=== PATIENT | female | born 1955 | race Caucasian/White ===

== ENCOUNTER 2020-03-13 03:29 | Emergency (ER) | payer OTHER ==
--- NOTE | 2020-03-13 04:11 | PDOC ---
History of Present Illness - General Stated Complaint: CHEST TIGHTNESS Time Seen by Provider: 03/13/20 03:44 History Source: Patient Exam Limitations: No Limitations - History of Present Illness Initial Comments: 03/13/20 06:48 64 yo F with a hx of afib (on eliquis, compliant), HTN, and seizures presents to the emergency department with chest tightness that began 1 hour prior to arrival. The patient states she was at rest when she had the gradual onset of substernal pressure that radiated to the back. The pain was constant, 5/10, with SOB. Denies nausea, vomiting, cough, fevers, chills, back pain, dysuria, hematuria, diarrhea, hematuria. The patient had substernal pain 2 weeks prior to this episode. Never had stress test done. Past History - Medical History Allergies/Adverse Reactions: Allergies Allergy/AdvReac Type Severity Reaction Status Date / Time No Known Allergies Allergy Verified 03/13/20 06:44 Review of Systems - Review of Systems Able to Perform ROS?: Yes Is the patient limited Citizen Of [place] proficient: No Constitutional: No: Chills, Diaphoresis, Fever, Weakness HEENTM: No: Eye Pain, Ear Pain, Nose Pain, Throat Pain Respiratory: Yes: Shortness of Breath. No: Cough Cardiac (ROS): Yes: Chest Pain. No: Palpitations ABD/GI: No: Constipated, Diarrhea, Nausea, Poor Fluid Intake, Rectal Bleeding, Vomiting, Tarry Stools : No: Burning, Dysuria, Hematuria Musculoskeletal: No: Back Pain Integumentary: No: Rash Neurological: No: Headache Psychiatric: No: Change in Appetite Endocrine: No: Unexplained Weight Loss Hematologic/Lymphatic: No: Anemia *Physical Exam - Physical Exam General Appearance: Yes: Nourished, Appropriately Dressed. No: Apparent Distress, Intoxicated HEENT: positive: EOMI, PAT, Normal Voice, Symmetrical, Pharynx Normal, Hearing Grossly Normal. negative: Pale Conjunctivae, Scleral Icterus (R), Scleral Icterus (L), Muffled/Hoarse voice, Pharyngeal Erythema, Tonsillar Exudate, Tonsillar Erythema, Nasal Congestion, Rhinorrhea, Sinus Tenderness, Excessive drooling Neck: positive: Trachea midline, Supple. negative: Tender, Lymphadenopathy (R), Lymphadenopathy (L), Tender lateral, Tender midline Respiratory/Chest: positive: Lungs Clear, Normal Breath Sounds. negative: Chest Tender, Respiratory Distress, Accessory Muscle Use Cardiovascular: positive: Regular Rhythm, Regular Rate, S1, S2. negative: Systolic Murmur Gastrointestinal/Abdominal: positive: Normal Bowel Sounds, Flat, Soft. ne gative: Tender, Distended, Guarding, Rebound Lymphatic: negative: Adenopathy Musculoskeletal: positive: Normal Inspection. negative: CVA Tenderness, Vertebral Tenderness Extremity: positive: Normal Capillary Refill, Normal Inspection, Normal Range of Motion. negative: Tender Integumentary: positive: Normal Color, Dry, Warm Neurologic: positive: Alert, Normal Mood/Affect Heart Score/ECG Review - History History: Slightly suspicious - Electrocardiogram EKG: Non specific repolarization disturbance - Age Age: 45-65 - Risk Factors Risk Factors Heart Score: Yes Hx Hypertension Based on the list above the patient has:: 1-2 risk factors - Troponin Troponin: </= normal limit - Score Heart Score - Total: 3 ED Treatment Course - LABORATORY CBC & Chemistry Diagram: 03/13/20 04:00 03/13/20 04:00 Medical Decision Making - Medical Decision Making Initial vitals: Initial Vital Signs Temp Pulse Resp BP Pulse Ox 98.2 F 70 18 162/107 H 100 03/13/20 04:35 03/13/20 04:35 03/13/20 04:35 03/13/20 04:35 03/13/20 04:35 Work up: patient presents to the emergency department with chest pain acs rule out first troponin is negative NSR without ST elevations or depression Patient signed out to day team for pending cxr and second troponin Discharge - Discharge Information Problems reviewed: Yes Clinical Impression/Diagnosis: SOB (shortness of breath), Atypical chest pain Chest pain Qualifiers: Chest pain type: unspecified Qualified Code(s): R07.9 - Chest pain, unspecified - Follow up/Referral Referrals: Nawaf Reagan MD [Primary Care Provider] - Rafiq Jimenez MD [Staff Physician] - Joby Degroot MD [Staff Physician] - Kennedy Watkins MD [Staff Physician] - - Patient Discharge Instructions Patient Printed Discharge Instructions: DI for Chest Pain Additional Instructions: You were seen in the Emergency Department for evaluation of chest pain. Your labs and imaging were unremarkable. Review the handout provided at discharge. Referrals were provided for Cardiologists, follow up with them within a week. Return to the Emergency Department if you develop fevers, chest pain, trouble breathing, worsening symptoms, or any new/concerning symptoms. - Post Discharge Activity
--- NOTE | 2020-03-13 04:13 | PDOC ---
Attending Attestation - Resident Resident Name: David Lux - ED Attending Attestation I have performed the following: I have examined & evaluated the patient, The case was reviewed & discussed with the resident, I agree w/resident's findings & plan, Exceptions are as noted - HPI HPI: 03/13/20 04:11 64 F with h/o seizure disorder, afib on eliquis, presenting with chest tightness. Pt states it started 1 hour ago, waking her from sleep. Endorses chest tightness 5/10 in intensity. Endorses SOB as well. Denies N/V. No diaphoresis. No cough. Denies leg swelling. No recent travel/immobilization. Denies any complaints at this time. CP/SOB resolved. - Physicial Exam PE: 03/13/20 04:12 "GENERAL: Awake, alert, and fully oriented, in no acute distress. HEAD: No signs of trauma EYES: PERRLA, EOMI, sclera anicteric, conjunctiva clear ENT: Auricles normal inspection, hearing grossly normal, nares patent, oropharynx clear without exudates. Moist mucosa NECK: Nontender, no stepoffs, Normal ROM, supple, no lymphadenopathy, JVD, or masses LUNGS: Breath sounds equal, clear to auscultation bilaterally. No wheezes, and no crackles HEART: Regular rate and rhythm, normal S1 and S2, no murmurs, rubs or gallops ABDOMEN: Soft, nontender, normoactive bowel sounds. No guarding, no rebound. No masses EXTREMITIES: Normal range of motion, no edema. No clubbing or cyanosis. No cords, erythema, or tenderness NEUROLOGICAL: Cranial nerves II through XII intact. 5/5 strength and sensation in all extremities, Normal speech, normal gait, normal cerebellar function SKIN: Warm, Dry, normal turgor, no rashes or lesions noted. - Medical Decision Making 03/13/20 06:02 64 F with chest pain. EKG nonischemic. - Labs, trop - CXR Pt signed out at 7am, pending repeat trop and re-evaluation. Discharge - Discharge Information Problems reviewed: Yes Clinical Impression/Diagnosis: SOB (shortness of breath), Atypical chest pain Chest pain Qualifiers: Chest pain type: unspecified Qualified Code(s): R07.9 - Chest pain, unspecified Condition: Stable Disposition: HOME - Follow up/Referral Referrals: Nawaf Reagan MD [Primary Care Provider] - Rafiq Jimenez MD [Staff Physician] - Joby Degroot MD [Staff Physician] - Kennedy Watkins MD [Staff Physician] - - Patient Discharge Instructions Patient Printed Discharge Instructions: DI for Chest Pain Additional Instructions: You were seen in the Emergency Department for evaluation of chest pain. Your labs and imaging were unremarkable. Review the handout provided at discharge. Referrals were provided for Cardiologists, follow up with them within a week. Return to the Emergency Department if you develop fevers, chest pain, trouble breathing, worsening symptoms, or any new/concerning symptoms. - Post Discharge Activity
[2020-03-13] MEDS ORDERED: FAMOTIDINE 20 MG/50 ML IVPB 20 MG/50 ML MG IVPB ONE (04:16)
[2020-03-13] MEDS ORDERED: ACETAMINOPHEN 1000 MG/100 ML VIAL (NON FORMULARY) IVPB ONE (04:16)
[2020-03-13] MEDS ORDERED: MAG HYDROX/AL HYDROX/SIMETH 30 ML UNIT-DOSE CUP PO ONE (04:16)
[2020-03-13 04:40] VITALS: BMI 22.6
[2020-03-13] MEDS ORDERED: CEFTRIAXONE 1 GM/50 ML BAG ONE (05:30)
[2020-03-13 05:31] LABS: BASO % 0.6 % (0-2.0); EOS % 0.9 % (0-4.5); HEMATOCRIT 38.5 % (32.4-45.2); HEMOGLOBIN 13.1 GM/dL (10.7-15.3); LYMPH % 40.3 % (8-40); MCH 36.6 pg (25.7-33.7); MCHC 33.9 g/dl (32.0-36.0); MEAN CELL VOLUME 107.9 fl (80-96); MEAN PLT VOLUME 8.6 fl (7.5-11.1); MONO % 14.2 % (3.8-10.2); PLATELET COUNT 183 K/MM3 (134-434); RBC 3.57 M/mm3 (3.60-5.2); RDW 15.2 % (11.6-15.6); WHITE BLOOD COUNT 3.7 K/mm3 (4.0-10.0)
[2020-03-13 07:06] LABS: CHLORIDE 109 mmol/L (98-107); CREATININE 0.7 mg/dL (0.55-1.3); GLUCOSE,RANDOM 87 mg/dL (74-106); SODIUM 146 mmol/L (136-145)
[2020-03-13 07:07] LABS: BILIRUBIN,TOTAL 0.2 mg/dL (0.2-1); CALCIUM 8.5 mg/dL (8.5-10.1); CO2 28 mmol/L (21-32); SGPT/ALT 56 U/L (13-61)
[2020-03-13 07:08] LABS: ALK PHOS 75 U/L (45-117)
[2020-03-13 07:38] LABS: ALBUMIN 3.6 g/dl (3.4-5.0); ANION GAP 9 MMOL/L (8-16); BLOOD UREA NITROGEN 11.5 mg/dL (7-18); POTASSIUM 3.5 mmol/L (3.5-5.1); TOT PROT 8.2 g/dl (6.4-8.2)
--- NOTE | 2020-03-13 08:10 | PDOC ---
*Physical Exam - Vital Signs Last Vital Signs Temp Pulse Resp BP Pulse Ox 98.2 F 70 18 162/107 H 100 03/13/20 04:35 03/13/20 04:35 03/13/20 04:35 03/13/20 04:35 03/13/20 04:35 ED Treatment Course - LABORATORY CBC & Chemistry Diagram: 03/13/20 04:00 03/13/20 04:00 - ADDITIONAL ORDERS Additional order review: Laboratory Results 03/13/20 03/13/20 04:50 04:00 PT with INR Cancelled INR Cancelled Sodium 146 H Potassium 3.5 Chloride 109 H Carbon Dioxide 28 Anion Gap 12 BUN 12.0 Creatinine 0.7 Est GFR (CKD-EPI)AfAm 106.87 Est GFR (CKD-EPI)NonAf 92.21 Random Glucose 87 Calcium 8.5 Total Bilirubin 0.2 AST 112 H ALT 56 Alkaline Phosphatase 75 Creatine Kinase 277 H Creatine Kinase Index 1.1 CK-MB (CK-2) 3.1 Troponin I < 0.02 Total Protein 8.1 Albumin 3.7 03/13/20 04:00 RBC 3.57 L MCV 107.9 H MCHC 33.9 RDW 15.2 MPV 8.6 Neutrophils % 44.0 Lymphocytes % 40.3 H Monocytes % 14.2 H Eosinophils % 0.9 Basophils % 0.6 - Medications Given in the ED: ED Medications Discontinued Medications Generic Name Dose Route Start Last Admin Trade Name Freq PRN Reason Stop Dose Admin Acetaminophen 1,000 mg 03/13/20 04:16 03/13/20 05:31 Ofirmev Injection - IVPB 03/13/20 04:17 1,000 mg ONCE ONE Administration Al Hydroxide/Mg Hydroxide 30 ml 03/13/20 04:16 03/13/20 05:31 Mylanta Oral Suspension - PO 03/13/20 04:17 30 ml ONCE ONE Administration Famotidine/Sodium Chloride 20 mg in 50 mls @ 100 mls/hr 03/13/20 04:16 03/13/20 05:31 Pepcid 20 Mg Premixed Ivpb - IVPB 03/13/20 04:45 100 mls/hr ONCE ONE Administration Medical Decision Making - Medical Decision Making Pt received as sign out Pending repeat Trop I CXR pending Pt feels her normal self at this time 08/16/20 08:04 158/86 03/13/20 09:12 Repeat Trop I neg Plan for D/C w/ PCP/Cards f/u Discharge instructions and return precautions given Patient in agreement and verbalized understanding Dispo: Home Discharge - Discharge Information Problems reviewed: Yes Clinical Impression/Diagnosis: Chest pain Qualifiers: Chest pain type: unspecified Qualified Code(s): R07.9 - Chest pain, unspecified Condition: Stable Disposition: HOME - Admission No - Follow up/Referral Referrals: Nawaf Reagan MD [Primary Care Provider] - Rafiq Jimenez MD [Staff Physician] - Joby Degroot MD [Staff Physician] - Kennedy Watkins MD [Staff Physician] - - Patient Discharge Instructions Patient Printed Discharge Instructions: DI for Chest Pain Additional Instructions: You were seen in the Emergency Department for evaluation of chest pain. Your labs and imaging were unremarkable. Review the handout provided at discharge. Referrals were provided for Cardiologists, follow up with them within a week. Return to the Emergency Department if you develop fevers, chest pain, trouble breathing, worsening symptoms, or any new/concerning symptoms. - Post Discharge Activity
[2020-03-13 08:42] LABS: SGOT/AST 112 U/L (15-37)
[2020-03-13 08:48] LABS: ANISOCYTOSIS 2+; MACROCYTOSIS 2+; PLATELET ESTIMATE NORMAL
[2020-03-13 09:21] VITALS: BP 159/89; PULSE 66; TEMP 97.7
--- NOTE | 2020-03-13 18:00 | EKG ---
Test Reason : Blood Pressure : / mmHG Vent. Rate : 062 BPM Atrial Rate : 062 BPM P-R Int : 200 ms QRS Dur : 104 ms QT Int : 426 ms P-R-T Axes : 061 020 069 degrees QTc Int : 432 ms NORMAL SINUS RHYTHM NORMAL ECG NO PREVIOUS ECGS AVAILABLE Confirmed by MD DEE, MICHEAL ([id number]) on 03/13/2020 5:59:58 PM Referred By: Confirmed By:MICHEAL PRICE MD
== END 2020-03-13 09:27 | disposition home or self-care (01) ==
LOC: JER 03:29
PROC: 3E0333Z Introduction of Anti-inflammatory into Peripheral Vein, Percutaneous Approach (ICD-10-PCS; principal; 2020-03-13)
PROC: 3E033GC Introduction of Other Therapeutic Substance into Peripheral Vein, Percutaneous Approach (ICD-10-PCS; 2020-03-13)
DX: R06.02 Shortness of breath (principal); R07.89 Other chest pain
CPT/HCPCS: 36415; 71045-TC-FY; 80053; 82550; 82553; 84484; 85025; 93005; 93010; 99285-25; J0131

== ENCOUNTER 2020-06-25 00:59 | Inpatient (IN) | payer OTHER ==
[2020-06-25 01:12] VITALS: TEMP 98.1; BMI 23.3
[2020-06-25 01:50] LABS: BASO % 0.6 % (0-2.0); HEMATOCRIT 34.1 % (32.4-45.2); HEMOGLOBIN 11.4 GM/dL (10.7-15.3); LYMPH % 51.2 % (8-40); MCH 37.1 pg (25.7-33.7); MCHC 33.6 g/dl (32.0-36.0); MEAN CELL VOLUME 110.6 fl (80-96); MEAN PLT VOLUME 8.4 fl (7.5-11.1); MONO % 10.8 % (3.8-10.2); NEUT % 35.4 % (42.8-82.8); PLATELET COUNT 265 K/MM3 (134-434); RBC 3.08 M/mm3 (3.60-5.2); RDW 14.6 % (11.6-15.6); WHITE BLOOD COUNT 4.6 K/mm3 (4.0-10.0)
[2020-06-25 01:53] LABS: MACROCYTOSIS 2+
[2020-06-25 02:00] LABS: INR 1.2 (0.83-1.09); PROTHROMBIN TIME (PATIENT) 14.7 SEC (9.7-13.0)
[2020-06-25] MEDS ORDERED: POTASSIUM CHLORIDE TABS 20 MEQ TABLET.ER (FP) PO ONE ×2 (02:07→02:37)
[2020-06-25 02:10] LABS: CHLORIDE 110 mmol/L (98-107); POTASSIUM 4.1 mmol/L (3.5-5.1); SODIUM 145 mmol/L (136-145)
[2020-06-25 02:11] LABS: CALCIUM 8.8 mg/dL (8.5-10.1)
[2020-06-25 02:12] LABS: ALBUMIN 3.5 g/dl (3.4-5.0); ANION GAP 10 MMOL/L (8-16); BLOOD UREA NITROGEN 15.1 mg/dL (7-18); CO2 25 mmol/L (21-32); GLUCOSE,RANDOM 110 mg/dL (74-106)
[2020-06-25 02:15] LABS: CREATININE 0.9 mg/dL (0.55-1.3); SGOT/AST 77 U/L (15-37); SGPT/ALT 92 U/L (13-61); TRIGLYCERIDES 203 mg/dL (0-150)
[2020-06-25 02:16] LABS: BILIRUBIN,TOTAL 0.2 mg/dL (0.2-1); CHOLESTEROL 150 mg/dL (50-200); LDL CHOLESTEROL (ONLY SJRH) 64 mg/dL (5-100)
[2020-06-25] MEDS ORDERED: SODIUM CHLORIDE 0.9% 500 ML INFUS.BAG IV ONE (02:16)
[2020-06-25 02:17] LABS: TOT PROT 7.9 g/dl (6.4-8.2)
[2020-06-25 02:18] LABS: ALK PHOS 69 U/L (45-117); HDL CHOLESTEROL 76 mg/dL (40-60)
[2020-06-25] MEDS ORDERED: carBAMazepine 200 MG TABLET PO ONE (03:14)
[2020-06-25] MEDS ORDERED: carBAMazepine 200 MG TABLET ONE (04:07)
[2020-06-25 04:25] VITALS: BP 122/67
[2020-06-25] MEDS ORDERED: MAGNESIUM SULFATE IN WATER 2 GM/50 ML IVPB IVPB ONE (05:14)
[2020-06-25] MEDS: MAGNESIUM SULF 50% (8.12 MEQ/2 ML-1 GM VIAL) IVPB ONE ×2 (05:26→05:32)
[2020-06-25 05:27] LABS: EPI CELLS 12 /uL (0-25.1); HYALINE CASTS 1 /uL (0-3.1); URINE APPEARANCE CLEAR; URINE BACTERIA 4461 /uL (0-1359); URINE BILIRUBIN NEGATIVE (NEGATIVE); URINE COLOR YELLOW; URINE GLUCOSE (UA) NEGATIVE (NEGATIVE); URINE KETONE NEGATIVE (NEGATIVE); URINE LEUK ESTERASE 1+ (NEGATIVE); URINE NITRITE NEGATIVE (NEGATIVE); URINE PROTEIN NEGATIVE (NEGATIVE); URINE RBC 7 /uL (0-23.9); URINE UROBILINOGEN 0.2 mg/dL (0.2-1.0); URINE WBC 55 /uL (0-25.8)
[2020-06-25 05:36] LABS: PHENCYCLIDINE,URINE NEGATIVE ng/ml (CUTOFF=25); URINE BARBITURATES NEGATIVE ng/ml (CUTOFF=200); URINE BENZODIAZEPINES NEGATIVE ng/ml (CUTOFF=200)
[2020-06-25 05:40] LABS: COCAINE, UR NEGATIVE ng/ml (CUTOFF=300); METHADONE, UR NEGATIVE ng/ml (CUTOFF=300); OPIATES, URI NEGATIVE ng/ml (CUTOFF=300); URINE AMPHETAMINES NEGATIVE ng/ml (CUTOFF=500)
[2020-06-25] MEDS ORDERED: ASPIRIN 81 MG CHEWABLE TABLETS PO ONE (07:28)
[2020-06-25] MEDS ORDERED: ASPIRIN 325 MG ENTERIC COATED TABLET (FP) ONE (08:02)
[2020-06-25 08:10] VITALS: PULSE 70
== END 2020-06-25 13:20 | disposition left against medical advice (07) | DRG 756 ==
LOC: JER 00:59 → JERBED 06:32
PROVIDERS: ADMIT Hospitalist; ATTEND Hospitalist
DX: F41.9 Anxiety disorder, unspecified (principal); I10 Essential (primary) hypertension; I48.91 Unspecified atrial fibrillation; R19.7 Diarrhea, unspecified; R53.1 Weakness; G40.909 Epilepsy, unspecified, not intractable, without status epilepticus; F10.129 Alcohol abuse with intoxication, unspecified
CPT/HCPCS: 36415; 70450-TC; 71045-TC-FY; 80053; 80061; 80183; 80307; 81003; 82550; 82553; 82962; 83721; 84484; 85025; 85610; 85730; 86850; 86900; 86901; 93005; 93010; 99285-25; C9803; U0003

== ENCOUNTER 2020-06-29 00:04 | Inpatient (IN) | payer OTHER ==
[2020-06-29 00:33] VITALS: BMI 24.2
[2020-06-29 01:48] LABS: BASO % 0.6 % (0-2.0); EOS % 0.1 % (0-4.5); HEMATOCRIT 32.5 % (32.4-45.2); HEMOGLOBIN 11.2 GM/dL (10.7-15.3); LYMPH % 41.3 % (8-40); MCH 37.7 pg (25.7-33.7); MCHC 34.6 g/dl (32.0-36.0); MEAN CELL VOLUME 108.9 fl (80-96); MEAN PLT VOLUME 8.6 fl (7.5-11.1); MONO % 6.6 % (3.8-10.2); NEUT % 51.4 % (42.8-82.8); PLATELET COUNT 232 K/MM3 (134-434); RBC 2.99 M/mm3 (3.60-5.2); RDW 14.3 % (11.6-15.6); WHITE BLOOD COUNT 6.8 K/mm3 (4.0-10.0)
[2020-06-29 02:00] LABS: INR 1.24 (0.83-1.09); PROTHROMBIN TIME (PATIENT) 15.1 SEC (9.7-13.0)
[2020-06-29 02:02] LABS: CHLORIDE 110 mmol/L (98-107); POTASSIUM 3.9 mmol/L (3.5-5.1); SODIUM 146 mmol/L (136-145)
[2020-06-29 02:04] LABS: CALCIUM 8.1 mg/dL (8.5-10.1)
[2020-06-29 02:05] LABS: ALBUMIN 3.7 g/dl (3.4-5.0); ANION GAP 6 MMOL/L (8-16); CO2 30 mmol/L (21-32); GLUCOSE,RANDOM 93 mg/dL (74-106)
[2020-06-29 02:07] LABS: CREATININE 0.7 mg/dL (0.55-1.3)
[2020-06-29 02:08] LABS: SGOT/AST 87 U/L (15-37); SGPT/ALT 67 U/L (13-61)
[2020-06-29 02:09] LABS: BILIRUBIN,TOTAL 0.3 mg/dL (0.2-1)
[2020-06-29 02:10] LABS: ALK PHOS 76 U/L (45-117)
[2020-06-29 06:07] LABS: URINE APPEARANCE CLEAR; URINE BILIRUBIN NEGATIVE (NEGATIVE); URINE COLOR YELLOW; URINE GLUCOSE (UA) NEGATIVE (NEGATIVE); URINE KETONE NEGATIVE (NEGATIVE); URINE LEUK ESTERASE NEGATIVE (NEGATIVE); URINE NITRITE NEGATIVE (NEGATIVE); URINE PROTEIN TRACE (NEGATIVE); URINE UROBILINOGEN 0.2 mg/dL (0.2-1.0)
[2020-06-29 06:16] LABS: URINE BARBITURATES NEGATIVE ng/ml (CUTOFF=200); URINE BENZODIAZEPINES NEGATIVE ng/ml (CUTOFF=200)
[2020-06-29 06:17] LABS: COCAINE, UR NEGATIVE ng/ml (CUTOFF=300); OPIATES, URI NEGATIVE ng/ml (CUTOFF=300); PHENCYCLIDINE,URINE NEGATIVE ng/ml (CUTOFF=25); URINE AMPHETAMINES NEGATIVE ng/ml (CUTOFF=500)
[2020-06-29 06:35] LABS: METHADONE, UR NEGATIVE ng/ml (CUTOFF=300)
[2020-06-29] MEDS ORDERED: LACTATED RINGERS SOLUTION 1000 ML INFUS.BAG IV ONE (06:39)
[2020-06-29] MEDS ORDERED: FOLIC ACID INJECTION - 1 MG, THIAMINE HCL 100 MG, MULTIVIT INJECTION ADULT 10 ML in SOD... IVPB ONE (08:00)
[2020-06-29 08:41] LABS: CHOLESTEROL 171 mg/dL (50-200)
[2020-06-29 08:42] LABS: LDL CHOLESTEROL (ONLY SJRH) 63 mg/dL (5-100); TRIGLYCERIDES 242 mg/dL (0-150)
[2020-06-29 08:44] LABS: HDL CHOLESTEROL 80 mg/dL (40-60)
[2020-06-29] MEDS ORDERED: METOPROLOL TARTRATE 50 MG TABLET (FP) ONE (08:48)
[2020-06-29] MEDS ORDERED: amLODIPine BESYLATE 5 MG TABLET (FP) ONE (08:48)
[2020-06-29] MEDS ORDERED: OXcarbazepine 150 MG TABLET (UD) PO ONE ×2 (09:00→22:05)
[2020-06-29 09:28] LABS: HEMATOCRIT 31.5 % (32.4-45.2); HEMOGLOBIN 10.6 GM/dL (10.7-15.3); MCH 37.5 pg (25.7-33.7); MCHC 33.8 g/dl (32.0-36.0); MEAN PLT VOLUME 8.5 fl (7.5-11.1); PLATELET COUNT 181 K/MM3 (134-434); RBC 2.84 M/mm3 (3.60-5.2); RDW 14.7 % (11.6-15.6); WHITE BLOOD COUNT 5.6 K/mm3 (4.0-10.0)
[2020-06-29 09:39] LABS: INR 1.22 (0.83-1.09); PROTHROMBIN TIME (PATIENT) 14.7 SEC (9.7-13.0)
[2020-06-29 09:41] LABS: ACTIVATED PTT 33.6 SECONDS (25.2-36.5)
[2020-06-29] MEDS: METOPROLOL TARTRATE 50 MG TABLET (FP) PO SCH (09:41)
[2020-06-29] MEDS: amLODIPine BESYLATE 5 MG TABLET (FP) PO SCH (09:41)
[2020-06-29] MEDS ORDERED: PT OWN MED DRAWER 7, Y5N ONE (09:42)
[2020-06-29] MEDS ORDERED: LORazepam 2 MG/ML SDV VIAL IVPUSH PRN (09:57)
[2020-06-29 10:01] LABS: POTASSIUM 3.8 mmol/L (3.5-5.1)
[2020-06-29 10:06] LABS: CALCIUM 8.3 mg/dL (8.5-10.1)
[2020-06-29 10:07] LABS: ALBUMIN 3.3 g/dl (3.4-5.0); MAGNESIUM 1.7 mg/dL (1.8-2.4)
[2020-06-29 10:10] LABS: CREATININE 0.6 mg/dL (0.55-1.3); PHOSPHOROUS 2.8 mg/dL (2.5-4.9)
[2020-06-29 10:11] LABS: BILIRUBIN,TOTAL 0.9 mg/dL (0.2-1); TOT PROT 7.2 g/dl (6.4-8.2)
[2020-06-29] MEDS ORDERED: LORazepam 1 MG TABLET PO PRN (14:57)
[2020-06-29] MEDS: LORazepam 1 MG TABLET PO SCH ×2 (16:49→22:58)
[2020-06-29] MEDS: ATORVASTATIN CA 20 MG TABLET (FP) PO SCH (22:57)
[2020-06-30] MEDS: LORazepam 1 MG TABLET PO SCH ×4 (06:47→22:26)
[2020-06-30 08:12] LABS: POTASSIUM 3.3 mmol/L (3.5-5.1)
[2020-06-30 08:14] LABS: BASO % 0.7 % (0-2.0); EOS % 0.7 % (0-4.5); HEMATOCRIT 34.3 % (32.4-45.2); HEMOGLOBIN 11.5 GM/dL (10.7-15.3); LYMPH % 27.8 % (8-40); MCH 35.8 pg (25.7-33.7); MCHC 33.5 g/dl (32.0-36.0); MEAN CELL VOLUME 106.8 fl (80-96); MEAN PLT VOLUME 9.3 fl (7.5-11.1); MONO % 12.8 % (3.8-10.2); PLATELET COUNT 180 K/MM3 (134-434); RBC 3.21 M/mm3 (3.60-5.2); RDW 13.8 % (11.6-15.6)
[2020-06-30 08:17] LABS: ALBUMIN 3.5 g/dl (3.4-5.0); BLOOD UREA NITROGEN 10.7 mg/dL (7-18); CALCIUM 8.8 mg/dL (8.5-10.1)
[2020-06-30 08:20] LABS: CREATININE 0.6 mg/dL (0.55-1.3)
[2020-06-30 08:22] LABS: BILIRUBIN,TOTAL 1.1 mg/dL (0.2-1); TOT PROT 7.7 g/dl (6.4-8.2)
[2020-06-30] MEDS ORDERED: POTASSIUM CHLORIDE TABS 20 MEQ TABLET.ER (FP) PO ONE (08:48)
[2020-06-30] MEDS ORDERED: KCL 10 MEQ IVPB 10 MEQ/100 ML INFUS.BAG IVPB SCH (09:00)
[2020-06-30] MEDS: OXcarbazepine 300 MG TABLET (UD) PO SCH (10:14)
[2020-06-30] MEDS: METOPROLOL TARTRATE 50 MG TABLET (FP) PO SCH (10:15)
[2020-06-30] MEDS: amLODIPine BESYLATE 5 MG TABLET (FP) PO SCH (10:15)
[2020-06-30] MEDS ORDERED: THIAMINE HCL 200 MG/2 ML VIAL IVPB SCH (17:00)
[2020-06-30] MEDS: FOLIC ACID 1 MG TABLET (FP) PO SCH (17:46)
[2020-06-30] MEDS: THIAMINE HCL 200 MG/2 ML VIAL IVPB SCH (17:46)
[2020-06-30] MEDS: ATORVASTATIN CA 20 MG TABLET (FP) PO SCH (22:26)
[2020-07-01 05:55] VITALS: TEMP 98.2
[2020-07-01] MEDS: LORazepam 1 MG TABLET PO SCH ×3 (05:59→17:28)
[2020-07-01 08:10] LABS: POTASSIUM 3.6 mmol/L (3.5-5.1)
[2020-07-01 08:13] LABS: ALBUMIN 3.3 g/dl (3.4-5.0); BASO % 0.3 % (0-2.0); BLOOD UREA NITROGEN 10.5 mg/dL (7-18); EOS % 1.9 % (0-4.5); LYMPH % 24.9 % (8-40); MAGNESIUM 1.4 mg/dL (1.8-2.4); MCH 35.6 pg (25.7-33.7); MCHC 33.2 g/dl (32.0-36.0); MEAN CELL VOLUME 107.3 fl (80-96); MEAN PLT VOLUME 9.6 fl (7.5-11.1); MONO % 10.7 % (3.8-10.2); NEUT % 62.2 % (42.8-82.8); PLATELET COUNT 180 K/MM3 (134-434); RBC 3.35 M/mm3 (3.60-5.2); RDW 14.2 % (11.6-15.6); WHITE BLOOD COUNT 4.4 K/mm3 (4.0-10.0)
[2020-07-01 08:16] LABS: CREATININE 0.6 mg/dL (0.55-1.3); PHOSPHOROUS 3.6 mg/dL (2.5-4.9)
[2020-07-01 08:18] LABS: BILIRUBIN,TOTAL 1.3 mg/dL (0.2-1); TOT PROT 7.6 g/dl (6.4-8.2)
[2020-07-01] MEDS ORDERED: PT OWN MED DRAWER 7, Y5N ONE (09:28)
[2020-07-01] MEDS ORDERED: POTASSIUM CHLORIDE TABS 20 MEQ TABLET.ER (FP) PO ONE (09:30)
[2020-07-01] MEDS: THIAMINE HCL 200 MG/2 ML VIAL IVPB SCH (10:14)
[2020-07-01] MEDS: FOLIC ACID 1 MG TABLET (FP) PO SCH (10:14)
[2020-07-01] MEDS: METOPROLOL TARTRATE 50 MG TABLET (FP) PO SCH (10:14)
[2020-07-01] MEDS: OXcarbazepine 300 MG TABLET (UD) PO SCH (10:15)
[2020-07-01] MEDS: amLODIPine BESYLATE 5 MG TABLET (FP) PO SCH (10:15)
[2020-07-01 14:12] VITALS: BP 162/85; PULSE 63
[2020-07-01] MEDS ORDERED: chlordiazePOXIDE HCL 25 MG CAPSULE PO PRN (14:46)
[2020-07-01] MEDS ORDERED: amLODIPine BESYLATE 5 MG TABLET (FP) PO ONE (16:49)
[2020-07-02] MEDS ORDERED: LORazepam 0.5 MG TABLET PO PRN
[2020-07-02] MEDS ORDERED: LORazepam 0.5 MG TABLET PO SCH (05:00)
[2020-07-02] MEDS ORDERED: MULTIVITAMINS (DAILY MVI) TABLET (FP) PO SCH (10:00)
[2020-07-03] MEDS ORDERED: LORazepam 0.5 MG TABLET PO ONE (05:00)
== END 2020-07-01 18:34 | disposition home or self-care (01) | DRG 775 ==
LOC: JER 00:04 → JERBED 04:51 → OBSVTOIN 06:35 → J6WEST-2 14:18 → J6S 06-30 12:43
PROVIDERS: ADMIT Hospitalist; ATTEND Internal Medicine
PROC: HZ2ZZZZ Detoxification Services for Substance Abuse Treatment (ICD-10-PCS; principal; 2020-06-29)
DX: F10.220 Alcohol dependence with intoxication, uncomplicated (principal); D53.9 Nutritional anemia, unspecified; R74.01 Elevation of levels of liver transaminase levels; G40.909 Epilepsy, unspecified, not intractable, without status epilepticus; I10 Essential (primary) hypertension; I48.91 Unspecified atrial fibrillation; E78.5 Hyperlipidemia, unspecified; Y90.8 Blood alcohol level of 240 mg/100 ml or more; E86.0 Dehydration; E87.0 Hyperosmolality and hypernatremia; S50.01XA Contusion of right elbow, initial encounter; S00.03XA Contusion of scalp, initial encounter; S22.32XA Fracture of one rib, left side, initial encounter for closed fracture; W18.30XA Fall on same level, unspecified, initial encounter; Y92.89 Other specified places as the place of occurrence of the external cause; K76.89 Other specified diseases of liver; K80.80 Other cholelithiasis without obstruction
CPT/HCPCS: 36415; 70450-TC; 71046-TC-FY; 71260-TC; 72125-TC; 73070-TC-RT-FY; 74177-TC; 80053; 80061; 80183; 80307; 81003; 82550; 82553; 82607; 82746; 83036; 83721; 83735; 84100; 84484; 85025; 85027; 85610; 85730; 93005; 93010; 99285-25; C9803; G0378; U0003

== ENCOUNTER 2020-07-29 03:26 | Emergency (ER) | payer OTHER ==
[2020-07-29 03:40] VITALS: BP 133/70; PULSE 69; TEMP 98.1; BMI 25.0
[2020-07-29] MEDS ORDERED: ACETAMINOPHEN 500 MG TABLET (FP) PO ONE (05:09)
[2020-07-29] MEDS ORDERED: ACETAMINOPHEN 325 MG TABLET (FP) ONE (05:15)
== END 2020-07-29 05:54 | disposition home or self-care (01) ==
LOC: JER 03:26
DX: S00.03XA Contusion of scalp, initial encounter (principal)
CPT/HCPCS: 93005; 93010; 99283-25

== ENCOUNTER 2020-11-09 11:22 | Emergency (ER) | payer OTHER ==
[2020-11-09 11:28] VITALS: BP 171/69; PULSE 65; TEMP 97.8; BMI 24.2
[2020-11-09] MEDS ORDERED: predniSONE 20 MG TABLET (UD) PO ONE ×2 (12:36→12:41)
[2020-11-09] MEDS ORDERED: diphenhydrAMINE HCL 25 MG CAPSULE (FP) PO ONE ×2 (12:36→12:42)
[2020-11-09] MEDS ORDERED: FAMOTIDINE 20 MG TABLET PO ONE (12:38)
[2020-11-09] MEDS ORDERED: predniSONE 20 MG TABLET (UD) ONE ×2 (12:42→12:47)
[2020-11-09] MEDS ORDERED: FAMOTIDINE 20 MG TABLET ONE (12:42)
[2020-11-09 13:43] LABS: EPI CELLS >36 /uL (0-25.1); HYALINE CASTS 9 /uL (0-3.1); PH,URINE 5.5 (5.0-8.0); URINE APPEARANCE CLOUDY; URINE BACTERIA >9,000 /uL (0-1359); URINE BILIRUBIN NEGATIVE (NEGATIVE); URINE COLOR YELLOW; URINE GLUCOSE (UA) NEGATIVE (NEGATIVE); URINE KETONE NEGATIVE (NEGATIVE); URINE LEUK ESTERASE 3+ (NEGATIVE); URINE NITRITE POSITIVE (NEGATIVE); URINE PROTEIN 2+ (NEGATIVE); URINE RBC 14 /uL (0-23.9); URINE UROBILINOGEN 0.2 mg/dL (0.2-1.0); URINE WBC 669 /uL (0-25.8)
== END 2020-11-09 14:13 | disposition home or self-care (01) ==
LOC: JER 11:22
DX: T78.40XA Allergy, unspecified, initial encounter (principal); N39.0 Urinary tract infection, site not specified; R35.0 Frequency of micturition
CPT/HCPCS: 71101-TC-RT-FY; 81003; 87086; 87186; 99283-25

== ENCOUNTER 2020-12-17 14:36 | Emergency (ER) | payer OTHER ==
[2020-12-17 14:58] VITALS: BMI 23.3
[2020-12-17] MEDS ORDERED: SODIUM CHLORIDE 1,000 ML IV STA (16:34)
[2020-12-17] MEDS ORDERED: chlordiazePOXIDE HCL 25 MG CAPSULE PO ONE (16:39)
[2020-12-17] MEDS ORDERED: chlordiazePOXIDE HCL 25 MG CAPSULE ONE (17:11)
[2020-12-17 17:21] LABS: EPI CELLS 5 /uL (0-25.1); HYALINE CASTS 2 /uL (0-3.1); URINE APPEARANCE CLOUDY; URINE BACTERIA >9,000 /uL (0-1359); URINE BILIRUBIN NEGATIVE (NEGATIVE); URINE COLOR YELLOW; URINE GLUCOSE (UA) NEGATIVE (NEGATIVE); URINE KETONE NEGATIVE (NEGATIVE); URINE LEUK ESTERASE 2+ (NEGATIVE); URINE NITRITE NEGATIVE (NEGATIVE); URINE PROTEIN 3+ (NEGATIVE); URINE RBC 9 /uL (0-23.9); URINE UROBILINOGEN 0.2 mg/dL (0.2-1.0); URINE WBC 314 /uL (0-25.8)
[2020-12-17] MEDS ORDERED: CEPHALEXIN MONOHYDRATE 500 MG CAPSULE (UD) PO ONE (17:42)
[2020-12-17 17:48] LABS: BASO % 0.8 % (0-2.0); EOS % 1.6 % (0-4.5); HEMOGLOBIN 12.3 GM/dL (10.7-15.3); LYMPH % 45.1 % (8-40); MCH 36.5 pg (25.7-33.7); MCHC 33.2 g/dl (32.0-36.0); MEAN CELL VOLUME 109.9 fl (80-96); MEAN PLT VOLUME 9.4 fl (7.5-11.1); MONO % 11.7 % (3.8-10.2); NEUT % 40.8 % (42.8-82.8); PLATELET COUNT 164 K/MM3 (134-434); RBC 3.37 M/mm3 (3.60-5.2); RDW 16.6 % (11.6-15.6); WHITE BLOOD COUNT 3.2 K/mm3 (4.0-10.0)
[2020-12-17 18:18] LABS: CHLORIDE 108 mmol/L (98-107); SODIUM 145 mmol/L (136-145)
[2020-12-17 18:20] LABS: CALCIUM 8.3 mg/dL (8.5-10.1)
[2020-12-17 18:21] LABS: ALBUMIN 3.7 g/dl (3.4-5.0); ANION GAP 5 MMOL/L (8-16); BLOOD UREA NITROGEN 9.2 mg/dL (7-18); CO2 31 mmol/L (21-32); GLUCOSE,RANDOM 85 mg/dL (74-106)
[2020-12-17 18:22] LABS: MAGNESIUM 1.6 mg/dL (1.8-2.4)
[2020-12-17 18:24] LABS: CREATININE 0.6 mg/dL (0.55-1.3); SGOT/AST 172 U/L (15-37); SGPT/ALT 57 U/L (13-61)
[2020-12-17 18:25] LABS: BILIRUBIN,TOTAL 0.3 mg/dL (0.2-1)
[2020-12-17 18:26] LABS: PHOSPHOROUS 3.6 mg/dL (2.5-4.9); TOT PROT 8.1 g/dl (6.4-8.2)
[2020-12-17 18:27] LABS: ALK PHOS 107 U/L (45-117)
[2020-12-17] MEDS ORDERED: CEPHALEXIN MONOHYDRATE 500 MG CAPSULE (UD) ONE (18:33)
[2020-12-17] MEDS ORDERED: MAGNESIUM SULF 50% (8.12 MEQ/2 ML-1 GM VIAL) IVPB ONE (18:48)
[2020-12-17] MEDS ORDERED: MAGNESIUM 1GM/D5W - 1 GM/100 ML IVPB IVPB ONE (19:24)
[2020-12-17 19:29] LABS: ANISOCYTOSIS 1+; PLATELET ESTIMATE NORMAL
[2020-12-17 19:30] LABS: MACROCYTOSIS 2+
[2020-12-17 19:59] VITALS: BP 157/58; PULSE 78; TEMP 98.4
== END 2020-12-17 20:01 | disposition home or self-care (01) ==
LOC: JER 14:36
PROC: 3E033NZ Introduction of Analgesics, Hypnotics, Sedatives into Peripheral Vein, Percutaneous Approach (ICD-10-PCS; principal; 2020-12-17)
PROC: 3E033GC Introduction of Other Therapeutic Substance into Peripheral Vein, Percutaneous Approach (ICD-10-PCS; 2020-12-17)
DX: F10.920 Alcohol use, unspecified with intoxication, uncomplicated (principal); N30.00 Acute cystitis without hematuria; D70.9 Neutropenia, unspecified
CPT/HCPCS: 36415; 71046-TC-FY; 80053; 81003; 82550; 82553; 83735; 84100; 84484; 85025; 87086; 87186; 93005; 93010; 99285-25

== ENCOUNTER 2021-01-05 05:22 | Emergency (ER) | payer OTHER ==
[2021-01-05 06:13] VITALS: BMI 24.2
[2021-01-05 06:42] LABS: BASO % 0.7 % (0-2.0); EOS % 1.8 % (0-4.5); HEMATOCRIT 35.7 % (32.4-45.2); HEMOGLOBIN 12.3 GM/dL (10.7-15.3); LYMPH % 42.4 % (8-40); MCH 36.9 pg (25.7-33.7); MCHC 34.5 g/dl (32.0-36.0); MEAN CELL VOLUME 107.2 fl (80-96); MEAN PLT VOLUME 9.6 fl (7.5-11.1); MONO % 14.3 % (3.8-10.2); NEUT % 40.8 % (42.8-82.8); PLATELET COUNT 113 K/MM3 (134-434); RBC 3.33 M/mm3 (3.60-5.2); RDW 16.3 % (11.6-15.6); WHITE BLOOD COUNT 2.1 K/mm3 (4.0-10.0)
[2021-01-05 06:52] LABS: CHLORIDE 107 mmol/L (98-107); SODIUM 143 mmol/L (136-145)
[2021-01-05 06:54] LABS: CALCIUM 8.6 mg/dL (8.5-10.1)
[2021-01-05 06:55] LABS: ALBUMIN 3.9 g/dl (3.4-5.0); ANION GAP 8 MMOL/L (8-16); CO2 28 mmol/L (21-32); GLUCOSE,RANDOM 94 mg/dL (74-106)
[2021-01-05 06:58] LABS: CREATININE 0.7 mg/dL (0.55-1.3); SGOT/AST 187 U/L (15-37); SGPT/ALT 70 U/L (13-61)
[2021-01-05 06:59] LABS: TOT PROT 8.4 g/dl (6.4-8.2)
[2021-01-05 07:01] LABS: ALK PHOS 121 U/L (45-117)
[2021-01-05 07:12] LABS: INR 0.95 (0.83-1.09); PROTHROMBIN TIME (PATIENT) 11.7 SEC (9.7-13.0)
[2021-01-05 07:15] LABS: ACTIVATED PTT 31.7 SECONDS (25.2-36.5)
[2021-01-05 07:27] LABS: BILIRUBIN,TOTAL 0.5 mg/dL (0.2-1); BLOOD UREA NITROGEN 10.2 mg/dL (7-18)
[2021-01-05] MEDS ORDERED: FOLIC ACID 1 MG TABLET (FP) PO ONE (07:34)
[2021-01-05] MEDS ORDERED: THIAMINE HCL 100 MG TABLET (FP) PO ONE (07:35)
[2021-01-05] MEDS ORDERED: chlordiazePOXIDE HCL 25 MG CAPSULE PO ONE ×2 (08:21→10:18)
[2021-01-05] MEDS ORDERED: chlordiazePOXIDE HCL 25 MG CAPSULE ONE ×2 (08:26→10:49)
[2021-01-05] MEDS ORDERED: FOLIC ACID 1 MG TABLET (FP) ONE (08:26)
[2021-01-05] MEDS ORDERED: THIAMINE HCL 100 MG TABLET (FP) ONE (08:26)
[2021-01-05 10:35] LABS: ANISOCYTOSIS 1+; MACROCYTOSIS 1+; OVALOCYTE 1+; PLATELET ESTIMATE DECREASED; TEAR DROP CELLS 1+
[2021-01-05 11:19] VITALS: BP 145/65; PULSE 61; TEMP 97.9
== END 2021-01-05 11:00 | disposition home or self-care (01) ==
LOC: JER 05:22
DX: R07.9 Chest pain, unspecified (principal)
CPT/HCPCS: 36415; 71045-TC-FY; 80053; 82550; 82553; 82607; 82746; 84484; 85025; 85610; 85730; 93005; 93010; 99285-25

== ENCOUNTER 2021-03-08 10:16 | Inpatient (IN) | payer OTHER ==
[2021-03-08] MEDS ORDERED: SODIUM CHLORIDE 1,000 ML IV STA (11:06)
[2021-03-08] MEDS ORDERED: METOCLOPRAMIDE HCL INJECTION 10 MG/2 ML VIAL IVPB ONE (11:06)
[2021-03-08] MEDS ORDERED: ACETAMINOPHEN 1000 MG/100 ML VIAL (NON FORMULARY) IVPB ONE (11:06)
[2021-03-08] MEDS ORDERED: FAMOTIDINE 20 MG/50 ML IVPB 20 MG/50 ML MG IVPB ONE ×2 (11:12→11:35)
[2021-03-08 11:31] LABS: BASO % 0.1 % (0-2.0); HEMATOCRIT 40.7 % (32.4-45.2); HEMOGLOBIN 14.4 GM/dL (10.7-15.3); LYMPH % 8.5 % (8-40); MCH 37.8 pg (25.7-33.7); MCHC 35.3 g/dl (32.0-36.0); MEAN CELL VOLUME 106.9 fl (80-96); MEAN PLT VOLUME 9.6 fl (7.5-11.1); MONO % 6.7 % (3.8-10.2); NEUT % 84.7 % (42.8-82.8); PLATELET COUNT 142 10^3/uL (134-434); RBC 3.81 M/mm3 (3.60-5.2); RDW 15.1 % (11.6-15.6)
[2021-03-08] MEDS ORDERED: ACETAMINOPHEN INJECTION 100 ML IVPB ONE (11:35)
[2021-03-08] MEDS ORDERED: METOCLOPRAMIDE HCL INJECTION 10 MG/2 ML VIAL ONE (11:35)
[2021-03-08 11:49] LABS: CHLORIDE 89 mmol/L (98-107); SODIUM 132 mmol/L (136-145)
[2021-03-08 11:55] LABS: ALBUMIN 3.5 g/dl (3.4-5.0); BLOOD UREA NITROGEN 16.1 mg/dL (7-18); CO2 32 mmol/L (21-32)
[2021-03-08 11:56] LABS: GLUCOSE,RANDOM 127 mg/dL (74-106); LIPASE 210 U/L (73-393)
[2021-03-08 11:58] LABS: CREATININE 0.8 mg/dL (0.55-1.3); SGOT/AST 103 U/L (15-37); SGPT/ALT 35 U/L (13-61)
[2021-03-08 12:00] LABS: BILIRUBIN,TOTAL 1.6 mg/dL (0.2-1); TOT PROT 8.3 g/dl (6.4-8.2)
[2021-03-08 12:01] LABS: ALK PHOS 97 U/L (45-117)
[2021-03-08 12:10] LABS: ANION GAP 12 MMOL/L (8-16); CALCIUM 10.6 mg/dL (8.5-10.1)
[2021-03-08] MEDS ORDERED: POTASSIUM CHLORIDE ORAL LIQUID 20 MEQ/15 ML PO ONE (12:54)
[2021-03-08] MEDS ORDERED: POTASSIUM CHLORIDE ORAL LIQUID 20 MEQ/15 ML ONE (13:22)
[2021-03-08] MEDS: KCL 10 MEQ IVPB 10 MEQ/100 ML INFUS.BAG IVPB SCH ×6 (13:23→23:20)
[2021-03-08 13:41] LABS: EPI CELLS 6 /uL (0-25.1); HYALINE CASTS 2 /uL (0-3.1); PH,URINE 7.5 (5.0-8.0); URINE APPEARANCE CLOUDY; URINE BACTERIA >9,000 /uL (0-1359); URINE BILIRUBIN NEGATIVE (NEGATIVE); URINE COLOR YELLOW; URINE GLUCOSE (UA) NEGATIVE (NEGATIVE); URINE KETONE TRACE (NEGATIVE); URINE LEUK ESTERASE TRACE (NEGATIVE); URINE NITRITE NEGATIVE (NEGATIVE); URINE PROTEIN 3+ (NEGATIVE); URINE RBC 17 /uL (0-23.9); URINE WBC 172 /uL (0-25.8)
[2021-03-08] MEDS ORDERED: ONDANSETRON 4 MG/2 ML VIAL IVPUSH ONE (14:05)
[2021-03-08] MEDS ORDERED: PROMETHAZINE HCL 25 MG/1 ML VIAL IVPUSH ONE (14:18)
[2021-03-08] MEDS ORDERED: KETOROLAC TROMETHAMINE 30 MG/1 ML VIAL IVPUSH ONE (15:01)
[2021-03-08] MEDS ORDERED: CEFTRIAXONE 1 GM in DEXTROSE 5%-WATER - 50 ML IVPB ONE (15:01)
[2021-03-08] MEDS ORDERED: ONDANSETRON 4 MG/2 ML VIAL ONE (15:05)
[2021-03-08] MEDS ORDERED: PROMETHAZINE HCL 25 MG/1 ML VIAL ONE (15:05)
[2021-03-08] MEDS ORDERED: CEFTRIAXONE 1 GM/50 ML BAG ONE (15:05)
[2021-03-08] MEDS ORDERED: KETOROLAC TROMETHAMINE 60 MG/2 ML VIAL ONE (15:09)
[2021-03-08] MEDS ORDERED: diazePAM CARPU-JECT 10 MG/2 ML DISP.SYRIN IVPUSH ONE (15:54)
[2021-03-08] MEDS ORDERED: diazePAM CARPU-JECT 10 MG/2 ML DISP.SYRIN ONE (16:06)
[2021-03-08] MEDS ORDERED: LACTATED RINGERS SOLUTION 1,000 ML IV SCH (17:15)
[2021-03-08] MEDS ORDERED: TRIMETHOBENZAMIDE HCL 200MG/2ML INJ IM PRN (17:15)
[2021-03-08] MEDS ORDERED: SODIUM CHLORIDE 1,000 ML IV SCH (17:45)
[2021-03-08 19:31] LABS: PHOSPHOROUS 3.1 mg/dL (2.5-4.9)
[2021-03-08] MEDS ORDERED: MAGNESIUM SULF 50% (8.12 MEQ/2 ML-1 GM VIAL) IVPB ONE (19:39)
[2021-03-08] MEDS ORDERED: POTASSIUM CHLORIDE TABS 20 MEQ TABLET.ER (FP) PO ONE ×2 (19:39→19:59)
[2021-03-08] MEDS ORDERED: MAGNESIUM OXIDE 400 MG TABLET (FP) PO ONE (19:39)
[2021-03-08] MEDS ORDERED: MAGNESIUM OXIDE 400 MG TABLET (FP) ONE (20:00)
[2021-03-08] MEDS ORDERED: KCL 10 MEQ IVPB 10 MEQ/100 ML INFUS.BAG IVPB ONE (20:00)
[2021-03-08] MEDS ORDERED: MAGNESIUM SULFATE IN WATER 2 GM/50 ML IVPB IVPB ONE ×2 (20:00→20:51)
[2021-03-08] MEDS ORDERED: KCL 10 MEQ IVPB 20 MEQ/200 ML INFUS.BAG IVPB ONE (20:20)
[2021-03-08 20:49] LABS: URINE AMPHETAMINES NEGATIVE (NEGATIVE); URINE BARBITURATES NEGATIVE (NEGATIVE)
[2021-03-08 20:50] LABS: COCAINE, UR NEGATIVE (NEGATIVE); METHADONE, UR NEGATIVE (NEGATIVE); OPIATES, URI NEGATIVE (NEGATIVE); PHENCYCLIDINE,URINE NEGATIVE (NEGATIVE)
[2021-03-08 20:51] LABS: URINE BENZODIAZEPINES POSITIVE (NEGATIVE)
[2021-03-09] MEDS ORDERED: FAMOTIDINE 10 MG TABLET PO ONE (01:16)
[2021-03-09] MEDS ORDERED: FAMOTIDINE 10 MG TABLET ONE (01:26)
[2021-03-09 06:25] LABS: BASO % 0.2 % (0-2.0); EOS % 0.1 % (0-4.5); HEMATOCRIT 39.2 % (32.4-45.2); HEMOGLOBIN 13.6 GM/dL (10.7-15.3); LYMPH % 13.1 % (8-40); MCH 37.8 pg (25.7-33.7); MCHC 34.6 g/dl (32.0-36.0); MEAN CELL VOLUME 109.2 fl (80-96); MEAN PLT VOLUME 10.5 fl (7.5-11.1); MONO % 11.2 % (3.8-10.2); NEUT % 75.4 % (42.8-82.8); PLATELET COUNT 124 10^3/uL (134-434); RBC 3.59 M/mm3 (3.60-5.2); RDW 15.4 % (11.6-15.6); WHITE BLOOD COUNT 8.4 K/mm3 (4.0-10.0)
[2021-03-09 06:41] LABS: BLOOD UREA NITROGEN 10.6 mg/dL (7-18); MAGNESIUM 1.2 mg/dL (1.8-2.4)
[2021-03-09] MEDS ORDERED: MAGNESIUM SULF 50% (8.12 MEQ/2 ML-1 GM VIAL) IVPB ONE ×3 (06:42→14:54)
[2021-03-09 06:44] LABS: CREATININE 0.6 mg/dL (0.55-1.3); PHOSPHOROUS 3.4 mg/dL (2.5-4.9)
[2021-03-09 06:45] LABS: BILIRUBIN,TOTAL 0.9 mg/dL (0.2-1)
[2021-03-09 06:53] LABS: CALCIUM 8.7 mg/dL (8.5-10.1)
[2021-03-09] MEDS ORDERED: MAGNESIUM SULFATE IN WATER 2 GM/50 ML IVPB IVPB ONE (06:55)
[2021-03-09] MEDS ORDERED: POTASSIUM CHLORIDE ORAL LIQUID 20 MEQ/15 ML PO ONE (07:33)
[2021-03-09] MEDS ORDERED: POTASSIUM CHLORIDE ORAL LIQUID 20 MEQ/15 ML ONE (08:46)
[2021-03-09] MEDS ORDERED: KCL 10 MEQ IVPB 10 MEQ/100 ML INFUS.BAG IVPB ONE (08:46)
[2021-03-09] MEDS ORDERED: METOPROLOL TARTRATE 5 MG/5 ML VIAL ONE (09:59)
[2021-03-09] MEDS: KCL 10 MEQ IVPB 10 MEQ/100 ML INFUS.BAG IVPB SCH ×2 (10:05→12:48)
[2021-03-09] MEDS: ENOXAPARIN NA (PORCINE) 40 MG/0.4 ML DISP.SYRIN SQ SCH (11:07)
[2021-03-09] MEDS ORDERED: CEFTRIAXONE 1 GM/50 ML BAG ONE (11:31)
[2021-03-09] MEDS: CEFTRIAXONE 1 GM in DEXTROSE 5%-WATER - 50 ML IVPB SCH (11:34)
[2021-03-09] MEDS ORDERED: POTASSIUM CHLORIDE TABS 20 MEQ TABLET.ER (FP) PO ONE (14:55)
[2021-03-09] MEDS ORDERED: SODIUM CHLORIDE 1,000 ML IV SCH (15:30)
[2021-03-09 16:11] LABS: CALCIUM 9.1 mg/dL (8.5-10.1)
[2021-03-09 16:12] LABS: BLOOD UREA NITROGEN 12.1 mg/dL (7-18)
[2021-03-09 16:15] LABS: CREATININE 0.7 mg/dL (0.55-1.3)
[2021-03-09 16:21] LABS: MAGNESIUM 1.7 mg/dL (1.8-2.4)
[2021-03-09] MEDS: METOPROLOL TARTRATE 5 MG/5 ML VIAL IVPUSH PRN (17:36)
[2021-03-09] MEDS ORDERED: MAG HYDROX/AL HYDROX/SIMETH 30 ML UNIT-DOSE CUP PO PRN (21:49)
[2021-03-10 07:33] LABS: HEMATOCRIT 37.8 % (32.4-45.2); HEMOGLOBIN 13.1 GM/dL (10.7-15.3); MCH 37.3 pg (25.7-33.7); MCHC 34.6 g/dl (32.0-36.0); MEAN CELL VOLUME 107.7 fl (80-96); MEAN PLT VOLUME 10.5 fl (7.5-11.1); PLATELET COUNT 117 10^3/uL (134-434); RBC 3.51 M/mm3 (3.60-5.2); RDW 15.4 % (11.6-15.6)
[2021-03-10 07:54] LABS: MAGNESIUM 1.9 mg/dL (1.8-2.4)
[2021-03-10 07:57] LABS: PHOSPHOROUS 3.2 mg/dL (2.5-4.9)
[2021-03-10] MEDS ORDERED: cefTRIAXone SODIUM 1 GM VIAL ONE (09:59)
[2021-03-10] MEDS ORDERED: DEXTROSE 5%-WATER - 50 ML IVPB ONE (09:59)
[2021-03-10] MEDS ORDERED: FAMOTIDINE 10 MG TABLET PO SCH (10:00)
[2021-03-10] MEDS ORDERED: FAMOTIDINE 20 MG/50 ML IVPB 20 MG/50 ML MG IVPB SCH (10:00)
[2021-03-10] MEDS: CEFTRIAXONE 1 GM in DEXTROSE 5%-WATER - 50 ML IVPB SCH (10:10)
[2021-03-10] MEDS: ENOXAPARIN NA (PORCINE) 40 MG/0.4 ML DISP.SYRIN SQ SCH (10:12)
[2021-03-10 13:39] VITALS: BMI 26.1
[2021-03-10] MEDS ORDERED: ONDANSETRON 4 MG/2 ML VIAL ONE (13:55)
[2021-03-10] MEDS ORDERED: SODIUM CHLORIDE 1,000 ML with POTASSIUM CHLORIDE 10 MEQ IV SCH (15:21)
[2021-03-10] MEDS: POTASSIUM CHLORIDE TABS 20 MEQ TABLET.ER (FP) PO ONE ×2 (16:22→16:30)
[2021-03-10] MEDS: SODIUM CHLORIDE 1,000 ML with POTASSIUM CHLORIDE 10 MEQ IV SCH (16:22)
[2021-03-10] MEDS ORDERED: PT OWN MED DRAWER 7, Y5N ONE (16:27)
[2021-03-10] MEDS: METOPROLOL TARTRATE 5 MG/5 ML VIAL IVPUSH PRN (16:59)
[2021-03-10 18:08] LABS: CHLORIDE 96 mmol/L (98-107); SODIUM 135 mmol/L (136-145)
[2021-03-10 18:10] LABS: ALBUMIN 3.2 g/dl (3.4-5.0); BLOOD UREA NITROGEN 13.4 mg/dL (7-18); CALCIUM 8.4 mg/dL (8.5-10.1); CO2 27 mmol/L (21-32); GLUCOSE,RANDOM 95 mg/dL (74-106)
[2021-03-10 18:13] LABS: BILIRUBIN,DIRECT 0.4 mg/dL (0.0-0.2); CREATININE 0.7 mg/dL (0.55-1.3); SGOT/AST 208 U/L (15-37); SGPT/ALT 108 U/L (13-61)
[2021-03-10 18:15] LABS: BILIRUBIN,TOTAL 0.9 mg/dL (0.2-1); TOT PROT 7.7 g/dl (6.4-8.2)
[2021-03-10 18:16] LABS: ALK PHOS 91 U/L (45-117)
[2021-03-10] MEDS: amLODIPine BESYLATE 10 MG TABLET (FP) PO SCH (18:18)
[2021-03-10 19:23] LABS: ANION GAP 11 MMOL/L (8-16)
[2021-03-10] MEDS ORDERED: POTASSIUM CHLORIDE TABS 20 MEQ TABLET.ER (FP) PO ONE (21:12)
[2021-03-10] MEDS ORDERED: POTASSIUM CHLORIDE 20 MEQ PREMIX IVPB 100 ML IVPB ONE (21:20)
[2021-03-10] MEDS: KCL 10 MEQ IVPB 10 MEQ/100 ML INFUS.BAG IVPB SCH ×2 (21:51→23:08)
[2021-03-10] MEDS: ATORVASTATIN CA 20 MG TABLET (FP) PO SCH (21:51)
[2021-03-11 08:13] LABS: BASO % 0.4 % (0-2.0); EOS % 0.7 % (0-4.5); HEMATOCRIT 37.4 % (32.4-45.2); HEMOGLOBIN 12.9 GM/dL (10.7-15.3); LYMPH % 22.3 % (8-40); MCH 37.2 pg (25.7-33.7); MCHC 34.5 g/dl (32.0-36.0); MONO % 15.7 % (3.8-10.2); NEUT % 60.9 % (42.8-82.8); PLATELET COUNT 137 10^3/uL (134-434); RBC 3.46 M/mm3 (3.60-5.2); RDW 15.4 % (11.6-15.6); WHITE BLOOD COUNT 5.4 K/mm3 (4.0-10.0)
[2021-03-11 08:34] LABS: BLOOD UREA NITROGEN 12.6 mg/dL (7-18); CALCIUM 8.5 mg/dL (8.5-10.1); MAGNESIUM 1.5 mg/dL (1.8-2.4)
[2021-03-11 08:35] LABS: ALBUMIN 2.9 g/dl (3.4-5.0)
[2021-03-11 08:37] LABS: CREATININE 0.7 mg/dL (0.55-1.3); PHOSPHOROUS 2.9 mg/dL (2.5-4.9)
[2021-03-11 08:39] LABS: BILIRUBIN,TOTAL 0.9 mg/dL (0.2-1); TOT PROT 6.9 g/dl (6.4-8.2)
[2021-03-11] MEDS ORDERED: cefTRIAXone SODIUM 1 GM VIAL ONE (09:14)
[2021-03-11 09:49] LABS: ANISOCYTOSIS 1+; MACROCYTOSIS 1+; PLATELET ESTIMATE DECREASED
[2021-03-11] MEDS: ENOXAPARIN NA (PORCINE) 40 MG/0.4 ML DISP.SYRIN SQ SCH (10:05)
[2021-03-11] MEDS: ESCITALOPRAM OXALATE 10 MG TABLET PO SCH (10:05)
[2021-03-11] MEDS: OXcarbazepine 300 MG TABLET (UD) PO SCH (10:06)
[2021-03-11] MEDS: amLODIPine BESYLATE 10 MG TABLET (FP) PO SCH (10:06)
[2021-03-11] MEDS: CEFTRIAXONE 1 GM in DEXTROSE 5%-WATER - 50 ML IVPB SCH (10:07)
[2021-03-11] MEDS: PANTOPRAZOLE SODIUM 40 MG VIAL IVPUSH SCH (10:07)
[2021-03-11] MEDS: SIMETHICONE 80 MG TAB.CHEW (FP) PO SCH ×3 (14:32→21:20)
[2021-03-11] MEDS: SODIUM CHLORIDE 1,000 ML with POTASSIUM CHLORIDE 10 MEQ IV SCH (15:33)
[2021-03-11] MEDS: ATORVASTATIN CA 20 MG TABLET (FP) PO SCH (21:20)
[2021-03-12 07:17] LABS: HEMOGLOBIN 12.6 GM/dL (10.7-15.3); MCH 38.3 pg (25.7-33.7); MCHC 35.1 g/dl (32.0-36.0); MEAN CELL VOLUME 109.1 fl (80-96); MEAN PLT VOLUME 9.7 fl (7.5-11.1); PLATELET COUNT 148 10^3/uL (134-434); RDW 15.7 % (11.6-15.6); WHITE BLOOD COUNT 5.2 K/mm3 (4.0-10.0)
[2021-03-12 07:18] LABS: CALCIUM 8.3 mg/dL (8.5-10.1)
[2021-03-12 07:19] LABS: BLOOD UREA NITROGEN 12.5 mg/dL (7-18); MAGNESIUM 1.5 mg/dL (1.8-2.4)
[2021-03-12 07:22] LABS: CREATININE 0.7 mg/dL (0.55-1.3); PHOSPHOROUS 2.7 mg/dL (2.5-4.9)
[2021-03-12 07:23] LABS: BILIRUBIN,TOTAL 0.9 mg/dL (0.2-1)
[2021-03-12] MEDS ORDERED: cefTRIAXone SODIUM 1 GM VIAL ONE (08:58)
[2021-03-12] MEDS ORDERED: DEXTROSE 5%-WATER - 50 ML IVPB ONE (08:59)
[2021-03-12] MEDS ORDERED: MAGNESIUM SULF 50% (8.12 MEQ/2 ML-1 GM VIAL) IVPB ONE (09:09)
[2021-03-12] MEDS ORDERED: POTASSIUM CHLORIDE TABS 20 MEQ TABLET.ER (FP) PO ONE ×2 (09:10→16:00)
[2021-03-12 09:19] LABS: ANISOCYTOSIS 1+; MACROCYTOSIS 1+; PLATELET ESTIMATE DECREASED
[2021-03-12] MEDS: SIMETHICONE 80 MG TAB.CHEW (FP) PO SCH ×5 (09:31→21:33)
[2021-03-12] MEDS: ESCITALOPRAM OXALATE 10 MG TABLET PO SCH ×2 (09:31)
[2021-03-12] MEDS: OXcarbazepine 300 MG TABLET (UD) PO SCH (09:31)
[2021-03-12] MEDS: CEFTRIAXONE 1 GM in DEXTROSE 5%-WATER - 50 ML IVPB SCH (09:32)
[2021-03-12] MEDS: amLODIPine BESYLATE 10 MG TABLET (FP) PO SCH (09:32)
[2021-03-12] MEDS: ENOXAPARIN NA (PORCINE) 40 MG/0.4 ML DISP.SYRIN SQ SCH (09:33)
[2021-03-12] MEDS: PANTOPRAZOLE SODIUM 40 MG VIAL IVPUSH SCH (09:34)
[2021-03-12] MEDS: SODIUM CHLORIDE 1,000 ML with POTASSIUM CHLORIDE 10 MEQ IV SCH (17:41)
[2021-03-12] MEDS ORDERED: PT OWN MED DRAWER 7, Y5N ONE (17:51)
[2021-03-12] MEDS: ATORVASTATIN CA 20 MG TABLET (FP) PO SCH (21:34)
[2021-03-13 07:32] LABS: HEMOGLOBIN 12.5 GM/dL (10.7-15.3); MCHC 34.6 g/dl (32.0-36.0); MEAN CELL VOLUME 109.5 fl (80-96); MEAN PLT VOLUME 9.5 fl (7.5-11.1); PLATELET COUNT 156 10^3/uL (134-434); RBC 3.28 M/mm3 (3.60-5.2); RDW 15.3 % (11.6-15.6); WHITE BLOOD COUNT 3.6 K/mm3 (4.0-10.0)
[2021-03-13 08:05] LABS: BLOOD UREA NITROGEN 10.7 mg/dL (7-18)
[2021-03-13 08:06] LABS: ALBUMIN 3.2 g/dl (3.4-5.0); CALCIUM 8.7 mg/dL (8.5-10.1)
[2021-03-13 08:08] LABS: MAGNESIUM 1.5 mg/dL (1.8-2.4)
[2021-03-13 08:09] LABS: CREATININE 0.7 mg/dL (0.55-1.3); PHOSPHOROUS 2.2 mg/dL (2.5-4.9)
[2021-03-13 08:11] LABS: BILIRUBIN,TOTAL 0.6 mg/dL (0.2-1); TOT PROT 7.1 g/dl (6.4-8.2)
[2021-03-13] MEDS: ESCITALOPRAM OXALATE 10 MG TABLET PO SCH (09:10)
[2021-03-13] MEDS: amLODIPine BESYLATE 10 MG TABLET (FP) PO SCH (09:10)
[2021-03-13] MEDS: SIMETHICONE 80 MG TAB.CHEW (FP) PO SCH ×4 (09:10→22:01)
[2021-03-13] MEDS: ENOXAPARIN NA (PORCINE) 40 MG/0.4 ML DISP.SYRIN SQ SCH (09:10)
[2021-03-13] MEDS: PANTOPRAZOLE SODIUM 40 MG VIAL IVPUSH SCH (09:10)
[2021-03-13 09:11] LABS: HELMET CELLS 0; HOWELL-JOLLY BODIES 0; OVALOCYTE 0; PLATELET ESTIMATE NORMAL; ROULEAU 0; SICKELED CELLS 0; TARGET CELLS 0; TEAR DROP CELLS 0; TOXIC GRANULATION 0
[2021-03-13 09:25] LABS: ANISOCYTOSIS 2+
[2021-03-13] MEDS ORDERED: PT OWN MED DRAWER 7, Y5N ONE (09:25)
[2021-03-13 09:26] LABS: MACROCYTOSIS 2+
[2021-03-13] MEDS: OXcarbazepine 300 MG TABLET (UD) PO SCH (09:28)
[2021-03-13] MEDS: PANTOPRAZOLE 40 MG TABLET PO SCH (10:12)
[2021-03-13] MEDS ORDERED: POTASSIUM CHLORIDE TABS 20 MEQ TABLET.ER (FP) PO ONE (13:41)
[2021-03-13] MEDS ORDERED: MAGNESIUM SULF 50% (8.12 MEQ/2 ML-1 GM VIAL) IVPB ONE (13:41)
[2021-03-13] MEDS: NAPH,MB-DB/K PH,MBDB POWDER PACKET PO SCH ×2 (14:40→22:01)
[2021-03-13] MEDS: ATORVASTATIN CA 20 MG TABLET (FP) PO SCH (22:01)
[2021-03-14] MEDS ORDERED: PT OWN MED DRAWER 7, Y5N ONE (08:15)
[2021-03-14] MEDS: SIMETHICONE 80 MG TAB.CHEW (FP) PO SCH ×4 (08:49→17:24)
[2021-03-14] MEDS: NAPH,MB-DB/K PH,MBDB POWDER PACKET PO SCH ×2 (08:49→09:01)
[2021-03-14] MEDS: PANTOPRAZOLE 40 MG TABLET PO SCH ×2 (08:50→09:01)
[2021-03-14] MEDS: amLODIPine BESYLATE 10 MG TABLET (FP) PO SCH ×2 (08:50→09:01)
[2021-03-14] MEDS: APIXABAN 5 MG TABLET PO SCH ×2 (08:50→09:00)
[2021-03-14] MEDS: ESCITALOPRAM OXALATE 10 MG TABLET PO SCH (09:00)
[2021-03-14] MEDS: OXcarbazepine 300 MG TABLET (UD) PO SCH (11:19)
[2021-03-14 11:55] LABS: ALBUMIN 3.4 g/dl (3.4-5.0); BLOOD UREA NITROGEN 10.9 mg/dL (7-18); CALCIUM 9.1 mg/dL (8.5-10.1); CREATININE 0.8 mg/dL (0.55-1.3); MAGNESIUM 1.6 mg/dL (1.8-2.4); PHOSPHOROUS 2.6 mg/dL (2.5-4.9)
[2021-03-14 11:56] LABS: BILIRUBIN,TOTAL 0.6 mg/dL (0.2-1); TOT PROT 7.6 g/dl (6.4-8.2)
[2021-03-14] MEDS ORDERED: POLYETHYLENE GLYCOL (HEALTHYLAX) 3350 17 GM PACKET PO SCH (12:00)
[2021-03-14] MEDS: MAGNESIUM SULF 50% (8.12 MEQ/2 ML-1 GM VIAL) IVPB ONE ×2 (13:12→13:37)
[2021-03-14 14:40] VITALS: BP 127/74; PULSE 86; TEMP 97.5
[2021-03-14] MEDS ORDERED: MAGNESIUM OXIDE 400 MG TABLET (FP) PO SCH ×2 (15:24→22:00)
[2021-03-14] MEDS ORDERED: MAGNESIUM OXIDE 400 MG TABLET (FP) PO ONE (15:25)
== END 2021-03-14 17:31 | disposition home or self-care (01) ==
LOC: JER 10:16 → JERBED 17:10 → J4W 03-09 11:50
PROVIDERS: ADMIT Internal Medicine
DX: K80.20 Calculus of gallbladder without cholecystitis without obstruction (principal); F10.239 Alcohol dependence with withdrawal, unspecified; K29.20 Alcoholic gastritis without bleeding; I10 Essential (primary) hypertension; E83.42 Hypomagnesemia; I48.0 Paroxysmal atrial fibrillation; I47.2 Ventricular tachycardia; N39.0 Urinary tract infection, site not specified; E87.6 Hypokalemia; E78.5 Hyperlipidemia, unspecified; R11.2 Nausea with vomiting, unspecified; R56.9 Unspecified convulsions; R10.11 Right upper quadrant pain; Z86.73 Personal history of transient ischemic attack (TIA), and cerebral infarction without residual deficits
CPT/HCPCS: 36415; 71045-TC-FY; 74176-TC; 74177-TC; 74240-TC-FY; 76705-TC; 80048; 80053; 80076; 80307; 81003; 82436; 82550; 82553; 82570; 83690; 83735; 84100; 84132; 84133; 84300; 84484; 85025; 85027; 86769; 86850; 86900; 86901; 93005; 93010; 93306-TC; 99285-25; C9803; J0131; U0003; U0005

== ENCOUNTER 2021-03-23 00:29 | Emergency (ER) | payer OTHER ==
[2021-03-23 01:00] VITALS: BP 124/78; TEMP 98.1; BMI 26.6
[2021-03-23 02:39] LABS: BASO % 0.5 % (0-2.0); EOS % 0.2 % (0-4.5); HEMATOCRIT 30.5 % (32.4-45.2); HEMOGLOBIN 10.4 GM/dL (10.7-15.3); LYMPH % 27.7 % (8-40); MCH 37.2 pg (25.7-33.7); MCHC 34.2 g/dl (32.0-36.0); MEAN CELL VOLUME 108.5 fl (80-96); MEAN PLT VOLUME 7.5 fl (7.5-11.1); MONO % 7.7 % (3.8-10.2); NEUT % 63.9 % (42.8-82.8); PLATELET COUNT 337 10^3/uL (134-434); RBC 2.81 M/mm3 (3.60-5.2); RDW 14.9 % (11.6-15.6); WHITE BLOOD COUNT 6.8 K/mm3 (4.0-10.0)
[2021-03-23 03:01] LABS: CHLORIDE 108 mmol/L (98-107); SODIUM 144 mmol/L (136-145)
[2021-03-23 03:03] LABS: CALCIUM 8.5 mg/dL (8.5-10.1)
[2021-03-23 03:04] LABS: ALBUMIN 3.1 g/dl (3.4-5.0); ANION GAP 10 MMOL/L (8-16); BLOOD UREA NITROGEN 18.5 mg/dL (7-18); CO2 26 mmol/L (21-32); GLUCOSE,RANDOM 109 mg/dL (74-106); MAGNESIUM 1.7 mg/dL (1.8-2.4)
[2021-03-23 03:07] LABS: SGOT/AST 94 U/L (15-37); SGPT/ALT 120 U/L (13-61)
[2021-03-23 03:08] LABS: BILIRUBIN,TOTAL 0.2 mg/dL (0.2-1); TOT PROT 6.6 g/dl (6.4-8.2)
[2021-03-23 03:10] LABS: ALK PHOS 58 U/L (45-117)
[2021-03-23 03:21] LABS: ANISOCYTOSIS 1+; MACROCYTOSIS 1+; PLATELET ESTIMATE NORMAL; TEAR DROP CELLS 1+
[2021-03-23] MEDS ORDERED: MAGNESIUM SULF 50% (8.12 MEQ/2 ML-1 GM VIAL) IVPB ONE (04:09)
[2021-03-23] MEDS ORDERED: MAGNESIUM 1GM/D5W - 1 GM/100 ML IVPB IVPB ONE (04:13)
[2021-03-23 06:34] VITALS: PULSE 88
== END 2021-03-23 06:36 | disposition home or self-care (01) ==
LOC: JER 00:29
PROC: 3E033GC Introduction of Other Therapeutic Substance into Peripheral Vein, Percutaneous Approach (ICD-10-PCS; principal; 2021-03-23)
DX: I48.91 Unspecified atrial fibrillation (principal)
CPT/HCPCS: 36415; 71045-TC-FY; 80053; 82550; 83735; 84484; 85025; 93005; 93010; 99285-25

== ENCOUNTER 2021-09-10 21:26 | Observation (INO) | payer OTHER ==
[2021-09-10 21:52] VITALS: BMI 27.4
[2021-09-10 22:57] LABS: BASO % 0.7 % (0-2.0); EOS % 1.2 % (0-4.5); HEMOGLOBIN 11.7 GM/dL (10.7-15.3); LYMPH % 41.5 % (8-40); MCH 37.3 pg (25.7-33.7); MCHC 34.3 g/dl (32.0-36.0); MEAN CELL VOLUME 108.6 fl (80-96); MEAN PLT VOLUME 8.7 fl (7.5-11.1); MONO % 9.6 % (3.8-10.2); PLATELET COUNT 185 10^3/uL (134-434); RBC 3.13 M/mm3 (3.60-5.2); RDW 14.3 % (11.6-15.6); WHITE BLOOD COUNT 5.3 K/mm3 (4.0-10.0)
[2021-09-10 23:05] LABS: INR 1.3 (0.83-1.09)
[2021-09-10 23:08] LABS: ACTIVATED PTT 35.7 SECONDS (25.2-36.5)
[2021-09-10 23:18] LABS: CALCIUM 8.5 mg/dL (8.5-10.1)
[2021-09-10 23:19] LABS: ALBUMIN 3.6 g/dl (3.4-5.0); BLOOD UREA NITROGEN 13.9 mg/dL (7-18)
[2021-09-10 23:22] LABS: CREATININE 0.9 mg/dL (0.55-1.3)
[2021-09-10 23:24] LABS: BILIRUBIN,TOTAL 0.3 mg/dL (0.2-1); TOT PROT 7.8 g/dl (6.4-8.2)
[2021-09-10 23:56] LABS: ANISOCYTOSIS 1+; MACROCYTOSIS 2+; PLATELET ESTIMATE NORMAL
[2021-09-11 00:55] LABS: EPI CELLS >36 /uL (0-25.1); HYALINE CASTS 21 /uL (0-3.1); URINE APPEARANCE TURBID; URINE BACTERIA >9,000 /uL (0-1359); URINE BILIRUBIN NEGATIVE (NEGATIVE); URINE COLOR YELLOW; URINE GLUCOSE (UA) NEGATIVE (NEGATIVE); URINE KETONE TRACE (NEGATIVE); URINE LEUK ESTERASE 2+ (NEGATIVE); URINE NITRITE NEGATIVE (NEGATIVE); URINE PROTEIN 2+ (NEGATIVE); URINE RBC 14 /uL (0-23.9); URINE UROBILINOGEN 0.2 mg/dL (0.2-1.0); URINE WBC 874 /uL (0-25.8)
[2021-09-11] MEDS ORDERED: LORazepam 1 MG TABLET PO PRN (03:48)
[2021-09-11] MEDS ORDERED: FOLIC ACID INJECTION - 1 MG, THIAMINE HCL 100 MG, MULTIVIT INJECTION ADULT 10 ML in SOD... IVPB ONE (05:00)
[2021-09-11] MEDS: LORazepam 1 MG TABLET PO SCH ×2 (05:30→14:16)
[2021-09-11 05:46] LABS: COCAINE, UR POSITIVE (NEGATIVE); METHADONE, UR NEGATIVE (NEGATIVE); OPIATES, URI NEGATIVE (NEGATIVE); PHENCYCLIDINE,URINE NEGATIVE (NEGATIVE); URINE AMPHETAMINES NEGATIVE (NEGATIVE); URINE BARBITURATES NEGATIVE (NEGATIVE); URINE BENZODIAZEPINES NEGATIVE (NEGATIVE)
[2021-09-11] MEDS ORDERED: LORazepam 0.5 MG TABLET ONE (06:04)
[2021-09-11 08:19] LABS: BASO % 0.7 % (0-2.0); EOS % 1.7 % (0-4.5); HEMATOCRIT 34.1 % (32.4-45.2); HEMOGLOBIN 11.7 GM/dL (10.7-15.3); LYMPH % 27.6 % (8-40); MCH 37.3 pg (25.7-33.7); MCHC 34.2 g/dl (32.0-36.0); MEAN PLT VOLUME 8.8 fl (7.5-11.1); MONO % 11.2 % (3.8-10.2); NEUT % 58.8 % (42.8-82.8); PLATELET COUNT 166 10^3/uL (134-434); RBC 3.13 M/mm3 (3.60-5.2); RDW 14.6 % (11.6-15.6); WHITE BLOOD COUNT 3.8 K/mm3 (4.0-10.0)
[2021-09-11 08:49] LABS: CALCIUM 8.9 mg/dL (8.5-10.1)
[2021-09-11 08:50] LABS: BLOOD UREA NITROGEN 12.7 mg/dL (7-18); MAGNESIUM 1.4 mg/dL (1.8-2.4)
[2021-09-11 08:53] LABS: CREATININE 0.7 mg/dL (0.55-1.3); PHOSPHOROUS 3.1 mg/dL (2.5-4.9)
[2021-09-11] MEDS ORDERED: THIAMINE HCL 100 MG TABLET (FP) ONE ×2 (09:22→10:03)
[2021-09-11] MEDS ORDERED: CEFTRIAXONE 1 GM in DEXTROSE 5%-WATER - 50 ML IVPB SCH (10:00)
[2021-09-11] MEDS ORDERED: OXcarbazepine 300 MG TABLET (UD) PO SCH ×2 (10:00)
[2021-09-11] MEDS ORDERED: APIXABAN 5 MG TABLET PO SCH (10:00)
[2021-09-11] MEDS ORDERED: amLODIPine BESYLATE 10 MG TABLET (FP) PO SCH (10:00)
[2021-09-11] MEDS ORDERED: THIAMINE HCL 100 MG TABLET (FP) PO SCH (10:00)
[2021-09-11] MEDS ORDERED: FOLIC ACID 1 MG TABLET (FP) PO SCH (10:00)
[2021-09-11] MEDS ORDERED: FOLIC ACID 1 MG TABLET (FP) ONE (10:02)
[2021-09-11] MEDS ORDERED: amLODIPine BESYLATE 10 MG TABLET (FP) ONE (10:02)
[2021-09-11] MEDS ORDERED: APIXABAN 5 MG TABLET ONE (10:02)
[2021-09-11] MEDS ORDERED: CEFTRIAXONE 1 GM/50 ML BAG ONE (10:03)
[2021-09-11] MEDS ORDERED: LORazepam 1 MG TABLET ONE (14:10)
[2021-09-11 16:20] VITALS: BP 123/66; PULSE 93; TEMP 97.6
[2021-09-11] MEDS ORDERED: ATORVASTATIN CA 20 MG TABLET (FP) PO SCH (22:00)
[2021-09-12] MEDS ORDERED: LORazepam 1 MG TABLET PO SCH (05:00)
[2021-09-13] MEDS ORDERED: LORazepam 0.5 MG TABLET PO PRN
[2021-09-13] MEDS ORDERED: LORazepam 0.5 MG TABLET PO SCH (05:00)
[2021-09-14] MEDS ORDERED: LORazepam 0.5 MG TABLET PO ONE (05:00)
== END 2021-09-11 19:09 | disposition home or self-care (01) ==
LOC: JER 21:26 → UNDOADMOB 23:23 → JERBED 23:23 → INTOOBSV 23:23 → JERBED 09-11 07:26
PROVIDERS: ADMIT Internal Medicine; ATTEND Nurse Practitioner Acute Care
PROC: 3E03329 Introduction of Other Anti-infective into Peripheral Vein, Percutaneous Approach (ICD-10-PCS; principal; 2021-09-11)
PROC: 3E033GC Introduction of Other Therapeutic Substance into Peripheral Vein, Percutaneous Approach (ICD-10-PCS; 2021-09-11)
DX: I48.91 Unspecified atrial fibrillation (principal); I10 Essential (primary) hypertension; E78.00 Pure hypercholesterolemia, unspecified; R56.9 Unspecified convulsions; N39.0 Urinary tract infection, site not specified; Z79.01 Long term (current) use of anticoagulants; Z29.9 Encounter for prophylactic measures, unspecified; R55 Syncope and collapse; F10.10 Alcohol abuse, uncomplicated; Z86.73 Personal history of transient ischemic attack (TIA), and cerebral infarction without residual deficits; Z88.8 Allergy status to other drugs, medicaments and biological substances; W18.39XA Other fall on same level, initial encounter; Y93.89 Activity, other specified; Y92.009 Unspecified place in unspecified non-institutional (private) residence as the place of occurrence of the external cause
CPT/HCPCS: 36415; 70450-TC; 71046-TC-FY; 72125-TC; 80048; 80053; 80061; 80183; 80307; 81003; 82607; 82746; 83735; 84100; 84443; 84484; 85025; 85610; 85730; 86850; 86900; 86901; 87086; 87186; 93005; 93010; 93306-TC; 93880-TC; 96365; 96367; 99285-25; C9803; G0378; U0003; U0005

== ENCOUNTER 2023-01-02 03:31 | Emergency (ER) | payer BC, OTHER ==
[2023-01-02 04:08] VITALS: BMI 27.4
[2023-01-02] MEDS ORDERED: SODIUM CHLORIDE 250 ML IV STA (05:34)
[2023-01-02 06:28] LABS: BASO % 0.9 % (0-2.0); EOS % 1.5 % (0-4.5); HEMATOCRIT 38.8 % (32.4-45.2); HEMOGLOBIN 12.9 GM/dL (10.7-15.3); LYMPH % 29.1 % (8-40); MCH 37.6 pg (25.7-33.7); MCHC 33.3 g/dl (32.0-36.0); MEAN PLT VOLUME 8.2 fl (7.5-11.1); MONO % 11.8 % (3.8-10.2); NEUT % 56.7 % (42.8-82.8); PLATELET COUNT 346 10^3/uL (134-434); RBC 3.44 M/mm3 (3.60-5.2); RDW 16.1 % (11.6-15.6); WHITE BLOOD COUNT 8.2 K/mm3 (4.0-10.0)
[2023-01-02 06:48] LABS: POTASSIUM 3.8 mmol/L (3.5-5.1)
[2023-01-02 06:50] LABS: CALCIUM 8.7 mg/dL (8.5-10.1)
[2023-01-02 06:51] LABS: ALBUMIN 3.5 g/dl (3.4-5.0); BLOOD UREA NITROGEN 10.7 mg/dL (7-18)
[2023-01-02 06:54] LABS: CREATININE 0.8 mg/dL (0.55-1.3)
[2023-01-02 06:55] LABS: BILIRUBIN,TOTAL 0.4 mg/dL (0.2-1); TOT PROT 7.8 g/dl (6.4-8.2)
[2023-01-02] MEDS ORDERED: SODIUM CHLORIDE 0.9% 1000 ML INFUS.BAG IV ONE (07:24)
[2023-01-02 08:32] VITALS: BP 125/83; PULSE 87; RESP 16; TEMP 98.2
== END 2023-01-02 09:52 | disposition home or self-care (01) ==
LOC: JER 03:31
PROC: 3E0337Z Introduction of Electrolytic and Water Balance Substance into Peripheral Vein, Percutaneous Approach (ICD-10-PCS; principal; 2023-01-02)
DX: R51.9 Headache, unspecified (principal); F10.129 Alcohol abuse with intoxication, unspecified; R53.1 Weakness; R41.82 Altered mental status, unspecified; Y90.8 Blood alcohol level of 240 mg/100 ml or more
CPT/HCPCS: 36415; 70450-TC; 80053; 80307; 85025; 93005; 93010; 99285-25

== ENCOUNTER 2024-01-29 11:53 | Day surgery (SDC) | payer BC, OTHER ==
[2024-01-22 15:22] VITALS: BMI 25.8
[2024-01-29 12:09] VITALS: RESP 18
[2024-01-29 13:43] VITALS: TEMP 97
[2024-01-29 13:44] VITALS: BP 148/72; PULSE 71
== END 2024-01-29 14:00 | disposition home or self-care (01) ==
LOC: FASU-ENDO 11:53
PROVIDERS: ATTEND Internal Medicine Gastroenterology
PROC: 0DB78ZX Excision of Stomach, Pylorus, Via Natural or Artificial Opening Endoscopic, Diagnostic (ICD-10-PCS; 2024-01-29)
PROC: 0DB28ZX Excision of Middle Esophagus, Via Natural or Artificial Opening Endoscopic, Diagnostic (ICD-10-PCS; 2024-01-29)
PROC: 0DB48ZX Excision of Esophagogastric Junction, Via Natural or Artificial Opening Endoscopic, Diagnostic (ICD-10-PCS; 2024-01-29)
PROC: 0DB98ZX Excision of Duodenum, Via Natural or Artificial Opening Endoscopic, Diagnostic (ICD-10-PCS; principal; 2024-01-29 12:58)
DX: K20.90 Esophagitis, unspecified without bleeding (principal); K44.9 Diaphragmatic hernia without obstruction or gangrene; K31.9 Disease of stomach and duodenum, unspecified
CPT/HCPCS: 88305-TC; 88342-TC

== ENCOUNTER 2024-07-28 13:53 | Inpatient (IN) | payer BC, OTHER ==
[2024-07-28] MEDS ORDERED: PANTOPRAZOLE SODIUM 40 MG VIAL ONE (14:42)
[2024-07-28] MEDS: SODIUM CHLORIDE 0.9% 500 ML INFUS.BAG IV ONE (15:05)
[2024-07-28] MEDS: PANTOPRAZOLE SODIUM 40 MG VIAL IVPUSH ONE (15:05)
[2024-07-28 15:11] LABS: BASO % 0.7 % (0-2.0); EOS % 0.3 % (0-4.5); HEMATOCRIT 24.5 % (32.4-45.2); HEMOGLOBIN 8.3 GM/dL (10.7-15.3); LYMPH % 22.1 % (8-40); MCH 37.7 pg (25.7-33.7); MEAN PLT VOLUME 10.1 fl (7.5-11.1); MONO % 10.7 % (3.8-10.2); NEUT % 66.2 % (42.8-82.8); PLATELET COUNT 201 10^3/uL (134-434); RBC 2.21 M/mm3 (3.60-5.2); RDW 15.6 % (11.6-15.6); WHITE BLOOD COUNT 8.2 K/mm3 (4.0-10.0)
[2024-07-28 15:17] LABS: INR 2.75 (0.83-1.09); PROTHROMBIN TIME (PATIENT) 30.2 SEC (9.7-13.0)
[2024-07-28 15:20] LABS: ACTIVATED PTT 40.6 SECONDS (25.2-36.5)
[2024-07-28 15:39] LABS: POTASSIUM 4.1 mmol/L (3.5-5.1)
[2024-07-28 15:41] LABS: ALBUMIN 2.8 g/dl (3.4-5.0); CALCIUM 9.2 mg/dL (8.5-10.1)
[2024-07-28 15:45] LABS: CREATININE 1.5 mg/dL (0.55-1.3)
[2024-07-28 15:46] LABS: BILIRUBIN,TOTAL 1.1 mg/dL (0.2-1); TOT PROT 6.7 g/dl (6.4-8.2)
[2024-07-28 15:50] LABS: ANISOCYTOSIS 1+; MACROCYTOSIS 2+
[2024-07-28] MEDS ORDERED: ONDANSETRON 4 MG/2 ML VIAL ONE ×2 (16:31→20:55)
[2024-07-28] MEDS: ONDANSETRON 4 MG/2 ML VIAL IVPB ONE (16:36)
[2024-07-28 17:42] LABS: HEMATOCRIT 22.8 % (32.4-45.2); HEMOGLOBIN 7.6 GM/dL (10.7-15.3); MCH 37.2 pg (25.7-33.7); MCHC 33.3 g/dl (32.0-36.0); MEAN CELL VOLUME 111.6 fl (80-96); MEAN PLT VOLUME 10.2 fl (7.5-11.1); PLATELET COUNT 185 10^3/uL (134-434); RBC 2.05 M/mm3 (3.60-5.2); RDW 15.7 % (11.6-15.6); WHITE BLOOD COUNT 8.6 K/mm3 (4.0-10.0)
[2024-07-28 18:08] LABS: ANION GAP 9 mmol/L (4-13); CALCIUM 8.7 mg/dL (8.5-10.1); CHLORIDE 97 mmol/L (98-107); CO2 38 mmol/L (21-32); POTASSIUM 3.8 mmol/L (3.5-5.1); SODIUM 143 mmol/L (136-145)
[2024-07-28 18:10] LABS: BLOOD UREA NITROGEN 49.8 mg/dL (7-18); GLUCOSE,RANDOM 93 mg/dL (74-106)
[2024-07-28 18:13] LABS: CREATININE 1.3 mg/dL (0.55-1.3)
[2024-07-28] MEDS ORDERED: FAMOTIDINE 20 MG/50 ML IVPB 20 MG/50 ML MG IVPB ONE (20:55)
[2024-07-28] MEDS: FAMOTIDINE 20 MG/50 ML IVPB 20 MG/50 ML MG IVPB ONE (21:03)
[2024-07-28] MEDS: ONDANSETRON 4 MG/2 ML VIAL IVPUSH PRN (21:03)
[2024-07-28 21:46] LABS: BASO % 0.7 % (0-2.0); EOS % 0.5 % (0-4.5); HEMOGLOBIN 7.1 GM/dL (10.7-15.3); LYMPH % 26.9 % (8-40); MCH 37.2 pg (25.7-33.7); MCHC 33.6 g/dl (32.0-36.0); MEAN CELL VOLUME 110.8 fl (80-96); MEAN PLT VOLUME 9.8 fl (7.5-11.1); MONO % 9.8 % (3.8-10.2); NEUT % 62.1 % (42.8-82.8); PLATELET COUNT 195 10^3/uL (134-434); RDW 15.9 % (11.6-15.6); WHITE BLOOD COUNT 8.6 K/mm3 (4.0-10.0)
[2024-07-28] MEDS: SODIUM CHLORIDE 1,000 ML IV SCH (23:25)
[2024-07-28] MEDS: FAMOTIDINE 20 MG/50 ML IVPB 20 MG/50 ML MG IVPB SCH (23:29)
[2024-07-29] MEDS ORDERED: LOPERAMIDE HCL 1 MG/5 ML UNIT DOSE CUP PO ONE (00:41)
[2024-07-29] MEDS ORDERED: PANTOPRAZOLE 40 MG TABLET PO SCH (00:45)
[2024-07-29 02:39] VITALS: BMI 22.4
[2024-07-29] MEDS: INSULIN ASPART SLIDING SCALE (NOVOLOG) 1 VIAL SQ SCH (07:48)
[2024-07-29 07:51] LABS: CHLORIDE 98 mmol/L (98-107); POTASSIUM 3.1 mmol/L (3.5-5.1); SODIUM 143 mmol/L (136-145)
[2024-07-29 08:01] LABS: ANION GAP 7 mmol/L (4-13); CALCIUM 8.6 mg/dL (8.5-10.1); CO2 39 mmol/L (21-32); GLUCOSE,RANDOM 88 mg/dL (74-106)
[2024-07-29 08:02] LABS: ALBUMIN 2.7 g/dl (3.4-5.0); BLOOD UREA NITROGEN 53.6 mg/dL (7-18)
[2024-07-29 08:04] LABS: CREATININE 1.6 mg/dL (0.55-1.3); SGPT/ALT 13 U/L (13-61)
[2024-07-29 08:05] LABS: SGOT/AST 36 U/L (15-37); TOT PROT 6.2 g/dl (6.4-8.2)
[2024-07-29 08:07] LABS: ALK PHOS 77 U/L (45-117)
[2024-07-29 08:14] LABS: MAGNESIUM 0.9 mg/dL (1.8-2.4)
[2024-07-29 08:17] LABS: BASO % 0.6 % (0-2.0); EOS % 1.5 % (0-4.5); HEMATOCRIT 24.9 % (32.4-45.2); HEMOGLOBIN 8.5 GM/dL (10.7-15.3); LYMPH % 34.7 % (8-40); MCH 36.5 pg (25.7-33.7); MCHC 34.2 g/dl (32.0-36.0); MEAN CELL VOLUME 106.8 fl (80-96); MONO % 6.7 % (3.8-10.2); NEUT % 56.5 % (42.8-82.8); PLATELET COUNT 156 10^3/uL (134-434); RBC 2.33 M/mm3 (3.60-5.2); WHITE BLOOD COUNT 7.8 K/mm3 (4.0-10.0)
[2024-07-29] MEDS: POTASSIUM CHLORIDE ORAL LIQUID 20 MEQ/15 ML PO ONE (09:41)
[2024-07-29] MEDS: MAGNESIUM 2GM/50ML STERILE WATER IVPB IVPB ONE (09:43)
[2024-07-29] MEDS: PANTOPRAZOLE SODIUM 40 MG VIAL IVPUSH SCH (09:54)
[2024-07-29] MEDS ORDERED: PANTOPRAZOLE SODIUM 40 MG VIAL IVPUSH SCH (10:00)
[2024-07-29] MEDS: DEXTROSE 5%-NORMAL SALINE 1,000 ML IV SCH (11:48)
[2024-07-29] MEDS: OXcarbazepine 300 MG TABLET (UD) PO SCH (12:55)
[2024-07-29 16:09] LABS: EPI CELLS 9 /uL (0-25.1); HYALINE CASTS 0 /uL (0-3.1); PH,URINE >= 9.0 (5.0-8.0); URINE APPEARANCE CLEAR; URINE BACTERIA >9,000 /uL (0-1359); URINE BILIRUBIN NEGATIVE (NEGATIVE); URINE COLOR YELLOW; URINE GLUCOSE (UA) NEGATIVE (NEGATIVE); URINE KETONE NEGATIVE (NEGATIVE); URINE LEUK ESTERASE 1+ (NEGATIVE); URINE NITRITE NEGATIVE (NEGATIVE); URINE PROTEIN NEGATIVE (NEGATIVE); URINE RBC 6 /uL (0-23.9); URINE WBC 29 /uL (0-25.8)
[2024-07-30] MEDS: TRIMETHOBENZAMIDE HCL 200MG/2ML INJ IM ONE (05:24)
[2024-07-30 07:28] LABS: BASO % 0.8 % (0-2.0); EOS % 5.5 % (0-4.5); HEMATOCRIT 21.2 % (32.4-45.2); HEMOGLOBIN 7.2 GM/dL (10.7-15.3); LYMPH % 37.4 % (8-40); MCH 36.7 pg (25.7-33.7); MCHC 34.1 g/dl (32.0-36.0); MEAN CELL VOLUME 107.5 fl (80-96); MEAN PLT VOLUME 9.7 fl (7.5-11.1); MONO % 7.3 % (3.8-10.2); PLATELET COUNT 134 10^3/uL (134-434); RBC 1.97 M/mm3 (3.60-5.2); RDW 19.5 % (11.6-15.6); WHITE BLOOD COUNT 4.9 K/mm3 (4.0-10.0)
[2024-07-30 07:31] LABS: INR 1.43 (0.83-1.09); PROTHROMBIN TIME (PATIENT) 16.3 SEC (9.7-13.0)
[2024-07-30 07:52] LABS: ALBUMIN 2.5 g/dl (3.4-5.0)
[2024-07-30 07:53] LABS: POTASSIUM 3.5 mmol/L (3.5-5.1)
[2024-07-30 07:56] LABS: BILIRUBIN,DIRECT 0.6 mg/dL (0.0-0.2); CALCIUM 8.5 mg/dL (8.5-10.1)
[2024-07-30 07:57] LABS: TOT PROT 5.8 g/dl (6.4-8.2)
[2024-07-30 07:58] LABS: MAGNESIUM 1.3 mg/dL (1.8-2.4)
[2024-07-30 08:03] LABS: CREATININE 1.2 mg/dL (0.55-1.3)
[2024-07-30] MEDS: dilTIAZem HCL 60 MG TABLET PO SCH (12:01)
[2024-07-30] MEDS: METOPROLOL TARTRATE 50 MG TABLET (FP) PO SCH (12:01)
[2024-07-30] MEDS: BISACODYL 5 MG TABLET.DR (FP) PO ONE (17:54)
[2024-07-30] MEDS: POLYETHYLENE GLYCOL 3350 255 GM BTL PO ONE (17:55)
[2024-07-31 08:13] LABS: HEMATOCRIT 27.1 % (32.4-45.2); HEMOGLOBIN 9.3 GM/dL (10.7-15.3); MCHC 34.5 g/dl (32.0-36.0); MEAN CELL VOLUME 104.2 fl (80-96); MEAN PLT VOLUME 9.7 fl (7.5-11.1); PLATELET COUNT 139 10^3/uL (134-434); RDW 20.5 % (11.6-15.6)
[2024-07-31 08:37] LABS: BILIRUBIN,TOTAL 1.3 mg/dL (0.2-1)
[2024-07-31 16:07] LABS: GLIADIN ANTIBODY IGA 4 units (0-19); GLIADIN ANTIBODY IGG 3 units (0-19); TRANSGLUTAMINASE IGG < 2 U/mL (0-5)
[2024-08-01 08:13] LABS: HEMATOCRIT 29.6 % (32.4-45.2); MCH 35.4 pg (25.7-33.7); MCHC 33.6 g/dl (32.0-36.0); MEAN CELL VOLUME 105.3 fl (80-96); MEAN PLT VOLUME 9.9 fl (7.5-11.1); PLATELET COUNT 154 10^3/uL (134-434); RBC 2.81 M/mm3 (3.60-5.2); RDW 20.6 % (11.6-15.6); WHITE BLOOD COUNT 5.7 K/mm3 (4.0-10.0)
[2024-08-01 10:09] VITALS: RESP 14
[2024-08-01 12:20] VITALS: BP 138/63; PULSE 61; TEMP 98.1
[2024-08-01 13:10] LABS: INR 1.19 (0.83-1.09); PROTHROMBIN TIME (PATIENT) 13.4 SEC (9.7-13.0)
== END 2024-08-01 14:56 | disposition home or self-care (01) | DRG 378 ==
LOC: JER 13:53 → JERBED 19:43 → J4S 21:56 → J4W 07-31 21:36
PROVIDERS: ADMIT Internal Medicine; ATTEND Internal Medicine
PROC: 0DBK8ZX Excision of Ascending Colon, Via Natural or Artificial Opening Endoscopic, Diagnostic (ICD-10-PCS; 2024-07-30)
PROC: 0DB98ZX Excision of Duodenum, Via Natural or Artificial Opening Endoscopic, Diagnostic (ICD-10-PCS; principal; 2024-07-30 10:30)
DX: K92.1 Melena (principal); D62 Acute posthemorrhagic anemia; I10 Essential (primary) hypertension; E78.00 Pure hypercholesterolemia, unspecified; G40.909 Epilepsy, unspecified, not intractable, without status epilepticus; M10.9 Gout, unspecified; E83.42 Hypomagnesemia; E87.6 Hypokalemia; I48.0 Paroxysmal atrial fibrillation; K44.9 Diaphragmatic hernia without obstruction or gangrene; K70.10 Alcoholic hepatitis without ascites
CPT/HCPCS: 36415; 36430; 74176-TC; 80048; 80053; 80076; 81003; 82247; 82272; 82570; 82607; 82728; 82746; 82784; 82962; 83516; 83540; 83550; 83735; 84100; 84300; 84450; 84460; 85025; 85027; 85610; 85730; 86038; 86803; 86850; 86900; 86901; 86922; 87340; 87517; 88305-TC; 93005; 93010; 99285-25; P9058